=== PATIENT | female | born 1935 | race Caucasian/White ===

== ENCOUNTER 2016-11-02 19:51 | Emergency (ER) | payer OTHER ==
[2016-11-02 19:53] VITALS: BMI 31.7
--- NOTE | 2016-11-02 20:49 | C.PDOC ---
History Of Present Illness 81 y/o female presents to ED with complaint of pain to left buttock and left groin area. Pt with history of herpes, on valtrex 3 days now, no pain medications given. Denies fever, chills, nausea, vomiting, diarrhea, urinary symptoms. Chief Complaint (Nursing): Abnormal Skin Integrity History Per: Patient History/Exam Limitations: no limitations Onset/Duration Of Symptoms: Days Current Symptoms Are (Timing): Still Present Location Of Injury: Left: Abdomen, Leg Quality Of Symptoms: Painful Recent travel outside of the [place]: No Past Medical History Reviewed: Historical Data, Nursing Documentation, Vital Signs Vital Signs: Last Vital Signs Temp 98.5 F 11/02/16 20:14 Pulse 80 11/02/16 20:14 Resp 20 11/02/16 20:14 BP 148/73 11/02/16 20:14 Pulse Ox 94 L 11/02/16 20:50 - Medical History PMH: Diabetes, HTN Family History: States: Unknown Family Hx - Social History Hx Alcohol Use: No Hx Substance Use: No - Immunization History Hx Tetanus Toxoid Vaccination: No Hx Influenza Vaccination: No Hx Pneumococcal Vaccination: No Review Of Systems Constitutional: Negative for: Fever, Chills Gastrointestinal: Negative for: Nausea, Vomiting, Abdominal Pain Genitourinary: Negative for: Dysuria, Frequency Skin: Positive for: Lesions Physical Exam - Physical Exam Appears: Non-toxic, Other (in painful distress) Skin: Warm, Dry, Other (vesicular eruption left thigh, left perineum ) Head: Atraumatic, Normacephalic Oral Mucosa: Moist Chest: Symmetrical Cardiovascular: Rhythm Regular Respiratory: Normal Breath Sounds, No Rales, No Rhonchi, No Wheezing Gastrointestinal/Abdominal: Soft, No Tenderness Back: Normal Inspection Extremity: Normal ROM, Capillary Refill (< 2 sec), Other (see skin exam) Neurological/Psych: Oriented x3, Normal Speech, Normal Cognition ED Course And Treatment O2 Sat by Pulse Oximetry: 94 Pulse Ox Interpretation: Normal Progress Note: Tx Morphine 4mg. On reassessment, patient is resting comfortably , and is in no acute distress. Patient instructed to follow up with clinic/PMD within 1-2 days. Disposition Counseled Patient/Family Regarding: Diagnosis - Disposition Referrals: [facility] [Outside] Disposition: HOME/ ROUTINE Disposition Time: 20:48 Condition: STABLE Prescriptions: oxyCODONE/Acetaminophen [Percocet 5/325 mg Tab] 1 tab PO QID PRN #20 tab PRN Reason: Pain Instructions: Shingles (DC) Forms: Gen Discharge Inst Algerian Print Language: CAY[place] ISLANDER - POA Present On Arrival: None - Clinical Impression Clinical Impression: Herpes zoster - Scribe Statement The provider has reviewed the documentation as recorded by the Morganibmarion Davidson Provider Scribe Attestation: All medical record entries made by the Morganibe were at my direction and personally dictated by me. I have reviewed the chart and agree that the record accurately reflects my personal performance of the history, physical exam, medical decision making, and the department course for this patient. I have also personally directed, reviewed, and agree with the discharge instructions and disposition.
[2016-11-02] MEDS ORDERED: Morphine 4 MG/ML VIAL ONE (20:53)
[2016-11-02 21:10] VITALS: BP 162/79; PULSE 61; RESP 16; TEMP 99; O2SAT 97
== END 2016-11-02 21:05 | disposition home or self-care (01) ==
LOC: C.ER 19:51
DX: B02.9 Zoster without complications (principal)
CPT/HCPCS: 96372; 99284; J2270

== ENCOUNTER 2017-01-01 20:24 | Emergency (ER) | payer OTHER ==
[2017-01-01 20:36] VITALS: TEMP 98.3
[2017-01-01 20:58] LABS: BASO # 0.1 K/uL (0.0-0.2); EOS # 0.5 K/uL (0.0-0.7); EOS % 6.8 % (0.0-4.0); HEMATOCRIT 41.4 % (34.0-47.0); LYMPH # 2.7 K/uL (1.0-4.3); LYMPH % 36.3 % (20.0-40.0); MEAN CELL VOLUME 84.1 fL (81.0-99.0); MEAN CORPUSCULAR HEMOGLOBIN 27.8 pg (27.0-31.0); MEAN CORPUSCULAR HGB CONC 33.1 g/dL (33.0-37.0); MEAN PLATELET VOLUME 9.6 fL (7.2-11.7); MONO # 0.7 K/uL (0.0-0.8); MONO % 9.6 % (0.0-10.0); NRBC % 0.1 % (0.0-2.0); RED CELL DISTRIBUTION WIDTH 13.4 % (11.5-14.5); WHITE BLOOD COUNT 7.4 K/uL (4.8-10.8)
[2017-01-01 21:06] LABS: POTASSIUM 5.3 mmol/L (3.6-5.2)
[2017-01-01 21:08] LABS: RBC URINE 2 /hpf (0-3); TRANSITIONAL EPITHIAL < 1 /hpf (0-3); URINE BACTERIA RARE (<OCC); URINE BILIRUBIN NEGATIVE (NEGATIVE); URINE BLOOD NEGATIVE (NEGATIVE); URINE COLOR Yellow (YELLOW); URINE GLUCOSE (UA) NORMAL (Normal); URINE KETONE NEGATIVE (NEGATIVE); URINE LEUKOCYTE ESTERASE 2+ Leu/uL (Negative); URINE PROTEIN NEGATIVE (NEGATIVE); URINE UROBILINOGEN NORMAL mg/dL (0.2-1.0); WBC URINE 10 /hpf (0-5)
[2017-01-01 21:08] LABS: ALB/GLOB RATIO 1.2 (1.0-2.1); BILIRUBIN,TOTAL 0.4 mg/dL (0.2-1.3); TOTAL PROTEIN 7.3 g/dL (6.3-8.3)
[2017-01-01 21:09] LABS: CALCIUM 9.1 mg/dl (8.6-10.4)
--- NOTE | 2017-01-01 21:38 | C.PDOC ---
History Of Present Illness 81 y/o female presents to ED with daughter who states patient's sugar has been in the 200-300 range for the past several days. Pt recently restarted taking metformin after not taking it for 1 year while [place] Denies chest pain, cough , fever, dysuria or any other complaints. Chief Complaint (Nursing): High Blood Sugar History Per: Patient History/Exam Limitations: no limitations Severity: Mild Recent travel outside of the [place]: No Additional History Per: Family Past Medical History Reviewed: Historical Data, Nursing Documentation, Vital Signs Vital Signs: Last Vital Signs Temp 98.3 F 01/01/17 20:26 Pulse 84 01/01/17 21:40 Resp 16 01/01/17 21:40 BP 133/79 01/01/17 21:40 Pulse Ox 96 01/01/17 21:40 - Medical History PMH: Diabetes, HTN Family History: States: Unknown Family Hx - Social History Hx Alcohol Use: No Hx Substance Use: No - Immunization History Hx Tetanus Toxoid Vaccination: No Hx Influenza Vaccination: No Hx Pneumococcal Vaccination: No Review Of Systems Except As Marked, All Systems Reviewed And Found Negative. Constitutional: Negative for: Fever, Chills Cardiovascular: Negative for: Chest Pain Respiratory: Negative for: Cough Gastrointestinal: Negative for: Vomiting, Abdominal Pain Genitourinary: Negative for: Dysuria Physical Exam - Physical Exam Appears: Non-toxic, No Acute Distress Skin: Warm, Dry, No Rash Head: Atraumatic, Normacephalic Neck: Normal, Normal ROM, Supple Chest: Symmetrical Cardiovascular: Rhythm Regular, No Murmur Respiratory: Normal Breath Sounds, No Rales, No Rhonchi, No Wheezing Gastrointestinal/Abdominal: Normal Exam, Soft, No Tenderness Extremity: No Pedal Edema Extremity: Bilateral: Atraumatic Neurological/Psych: Oriented x3, Normal Speech ED Course And Treatment - Laboratory Results Result Diagrams: 01/01/17 20:54 01/01/17 20:54 O2 Sat by Pulse Oximetry: 95 (room air) Pulse Ox Interpretation: Normal Disposition - Disposition Referrals: [facility] [Outside] [facility] [Outside] Disposition: HOME/ ROUTINE Disposition Time: 21:15 Condition: GOOD Additional Instructions: Thank you for letting us take care of you today. Your provider was Dr. Rich. The emergency medical care you received today was directed at your acute symptoms. If you were prescribed any medication, please fill it and take as directed. It may take several days for your symptoms to resolve. Return to the Emergency Department if your symptoms worsen, do not improve, or if you have any other problems. Please contact your doctor or call one of the physicians/clinics you have been referred to that are listed on the Patient Visit Information form that is included in your discharge packet. Bring any paperwork you were given at discharge with you along with any medications you are taking to your follow up visit. Our treatment cannot replace ongoing medical care by a primary care provider (PCP) outside of the emergency department. Thank you for allowing the [facility] team to be part of your care today. Follow up with the clinic in 2-3 days for re-evaluation. Instructions: How to Check Your Blood Sugar (ED), Diabetes Mellitus Type 2 in Adults (ED) Forms: Gen Discharge Inst Khmer Print Language: CENTRAL AFRICAN - Clinical Impression Clinical Impression: Diabetes mellitus - Scribe Statement The provider has reviewed the documentation as recorded by the Hilda Baires Provider Attestation: All medical record entries made by the Hilda were at my direction and personally dictated by me. I have reviewed the chart and agree that the record accurately reflects my personal performance of the history, physical exam, medical decision making, and the department course for this patient. I have also personally directed, reviewed, and agree with the discharge instructions and disposition.
[2017-01-01 21:41] VITALS: BP 133/79; PULSE 84; RESP 16
[2017-01-01 21:49] VITALS: O2SAT 95
== END 2017-01-01 21:40 | disposition home or self-care (01) ==
LOC: C.ER 20:24
DX: E11.9 Type 2 diabetes mellitus without complications (principal); I10 Essential (primary) hypertension

== ENCOUNTER 2017-01-21 13:09 | Emergency (ER) | payer OTHER ==
[2017-01-21 14:26] VITALS: O2SAT 96
[2017-01-21] MEDS ORDERED: Lactated Ringer's 1,000 ML IVB ONE (14:30)
[2017-01-21 14:53] LABS: BASO # 0.1 K/uL (0.0-0.2); BASO % 0.8 % (0.0-2.0); EOS # 0.1 K/uL (0.0-0.7); EOS % 0.8 % (0.0-4.0); HEMOGLOBIN 13.8 g/dL (11.0-16.0); LYMPH % 14.6 % (20.0-40.0); MEAN CELL VOLUME 84.7 fL (81.0-99.0); MEAN CORPUSCULAR HEMOGLOBIN 27.5 pg (27.0-31.0); MEAN CORPUSCULAR HGB CONC 32.4 g/dL (33.0-37.0); MEAN PLATELET VOLUME 9.2 fL (7.2-11.7); MONO # 0.9 K/uL (0.0-0.8); NEUT # 10.5 K/uL (1.8-7.0); NEUT % 76.8 % (50.0-75.0); RBC 5.02 Mil/uL (3.80-5.20); WHITE BLOOD COUNT 13.6 K/uL (4.8-10.8)
[2017-01-21 15:02] LABS: ALBUMIN 3.5 g/dL (3.5-5.0)
[2017-01-21 15:05] LABS: ALB/GLOB RATIO 1.3 (1.0-2.1); AST/SGOT 22 U/L (14-36); GFR AFRICAN-AMERICAN > 60; GFR NON-AFRICAN AMERICAN > 60
[2017-01-21 15:06] LABS: ALT/SGPT 26 U/L (9-52); BLOOD UREA NITROGEN 32 mg/dL (7-17); CALCIUM 8.8 mg/dl (8.6-10.4); MAGNESIUM 1.7 mg/dL (1.6-2.3)
[2017-01-21 15:46] LABS: SQUAMOUS EPITHIAL 1 /hpf (0-5); URINE BACTERIA RARE (<OCC); URINE BILIRUBIN NEGATIVE (NEGATIVE); URINE BLOOD 3+ (NEGATIVE); URINE CLARITY Clear (Clear); URINE COLOR Yellow (YELLOW); URINE GLUCOSE (UA) 3+ mg/dL (Normal); URINE LEUKOCYTE ESTERASE 1+ Leu/uL (Negative); URINE NITRATE NEGATIVE (NEGATIVE); URINE PROTEIN NEGATIVE (NEGATIVE); URINE UROBILINOGEN NORMAL mg/dL (0.2-1.0)
[2017-01-21] MEDS ORDERED: Sodium Chloride 0.9% 1,000 ML IV ONE (15:53)
[2017-01-21] MEDS ORDERED: Sodium Chloride 0.9% 1,000 ML ONE (16:24)
--- NOTE | 2017-01-21 18:05 | C.PDOC ---
Time Seen by Provider: 01/21/17 14:16 Chief Complaint (Nursing): Abnormal Skin Integrity History Per: Patient, Family Onset/Duration Of Symptoms: Days (few) Current Symptoms Are (Timing): Still Present Location Of Injury: Posterior: Perineum (Teresa-anal) Quality Of Symptoms: Itching Severity: Moderate Additional History Per: Prior Records Past Medical History Reviewed: Historical Data, Nursing Documentation, Vital Signs Vital Signs: Last Vital Signs Temp 97.7 F 01/21/17 13:32 Pulse 84 01/21/17 13:32 Resp 20 01/21/17 13:32 BP 107/65 01/21/17 13:32 Pulse Ox 96 01/21/17 13:32 - Medical History PMH: Diabetes, HTN, Hypercholesterolemia Family History: States: Unknown Family Hx - Social History Hx Alcohol Use: No Hx Substance Use: No - Immunization History Hx Tetanus Toxoid Vaccination: No Hx Influenza Vaccination: No Hx Pneumococcal Vaccination: No Review Of Systems Except As Marked, All Systems Reviewed And Found Negative. Constitutional: Positive for: Malaise. Negative for: Fever Cardiovascular: Negative for: Chest Pain Respiratory: Negative for: Shortness of Breath Gastrointestinal: Positive for: Diarrhea (for 5 days, but stopped 2 days ago). Negative for: Vomiting, Abdominal Pain Genitourinary: Negative for: Dysuria, Hematuria Musculoskeletal: Negative for: Neck Pain Skin: Positive for: Rash (Pt is recovering from Shingles) Neurological: Negative for: Weakness, Numbness, Seizures, Altered Mental Status Physical Exam - Physical Exam Appears: Non-toxic, No Acute Distress Skin: Warm, Dry Head: Atraumatic, Normacephalic Eye(s): bilateral: Normal Inspection, PERRL, EOMI Neck: Normal ROM, Supple Cardiovascular: Rhythm Regular Respiratory: Normal Breath Sounds, No Accessory Muscle Use Gastrointestinal/Abdominal: Soft, No Tenderness Rectal: Other (Teresa-anal rash looks like roxanne) Back: No CVA Tenderness Extremity: Normal ROM Neurological/Psych: Oriented x3, Normal Motor, Normal Sensation ED Course And Treatment - Laboratory Results Result Diagrams: 01/21/17 14:47 01/21/17 14:47 Lab Interpretation: Abnormal Interpretation Of Abnormal: Elevated BUN O2 Sat by Pulse Oximetry: 96 Pulse Ox Interpretation: Normal Progress Note: Pt feels much better after IV fluid hydration and wants to go home. Reassessment Condition: Improved Progress - Interventions Interventions:: Observation, Intravenous fluid - Data Reviewed Data Reviewed: Lab, Old records - Patient Status Patient status: Mostly improved - Continuity of Care Discussed patient case with:: Patient, Family-HIPPA compliant, ED Nurse - Patient Plan Patient Plan: Discharge, F/U with PCP, Continue present meds Disposition Counseled Patient/Family Regarding: Studies Performed, Diagnosis, Need For Followup, Rx Given - Disposition Referrals: Nehal Cuevas MD [Staff Provider] - Disposition: HOME/ ROUTINE Disposition Time: 18:06 Condition: IMPROVED Additional Instructions: Follow up with your doctor within 1-2 weeks for further evaluation and treatment. Return to the ER if she develops fever, vomiting, abdominal pain, lethargy, worsening of symptoms or if you have any other concerns. Prescriptions: Nystatin [Mycostatin Cream] 1 applic TOP TID #1 tube Instructions: Skin Yeast Infection (ED), Dehydration (ED) Print Language: GREEK - Clinical Impression Clinical Impression: Perianal candidiasis, Dehydration
[2017-01-21 18:35] VITALS: RESP 18
[2017-01-21 18:40] VITALS: BP 158/80; PULSE 68; TEMP 98.2
== END 2017-01-21 18:35 | disposition home or self-care (01) ==
LOC: C.ER 13:09
DX: B37.89 Other sites of candidiasis (principal); E86.0 Dehydration
CPT/HCPCS: 80053; 81001; 83735; 85025; 96360; 99285; J7040

== ENCOUNTER 2017-09-03 09:48 | Day surgery (SDC) | payer OTHER ==
[2017-09-03 10:09] VITALS: BMI 25.4
[2017-09-03] MEDS ORDERED: Propofol 10 mg/ml Inj (20 ML) ONE ×3 (11:20→11:50)
[2017-09-03 12:20] VITALS: TEMP 97.3
[2017-09-03 12:45] VITALS: PULSE 65
[2017-09-03 14:43] VITALS: BP 163/71; RESP 18; O2SAT 99
== END 2017-09-03 13:20 | disposition home or self-care (01) ==
LOC: C.ENDO 09:48
PROVIDERS: ATTEND Internal Medicine
DX: K29.70 Gastritis, unspecified, without bleeding (principal); K85.90 Acute pancreatitis without necrosis or infection, unspecified; Z88.1 Allergy status to other antibiotic agents; E11.9 Type 2 diabetes mellitus without complications; E78.5 Hyperlipidemia, unspecified; I10 Essential (primary) hypertension; H91.3 Deaf nonspeaking, not elsewhere classified; Z83.3 Family history of diabetes mellitus; Z79.84 Long term (current) use of oral hypoglycemic drugs; Z79.899 Other long term (current) drug therapy; E66.9 Obesity, unspecified; Z68.28 Body mass index [BMI] 28.0-28.9, adult; K44.9 Diaphragmatic hernia without obstruction or gangrene; K57.10 Diverticulosis of small intestine without perforation or abscess without bleeding; B96.81 Helicobacter pylori [H. pylori] as the cause of diseases classified elsewhere
CPT/HCPCS: 43238; 43239; 82948; 88305; 88342; J2704

== ENCOUNTER 2017-09-16 09:52 | Emergency (ER) | payer OTHER ==
[2017-09-16 09:53] VITALS: BMI 25.4
[2017-09-16 10:06] VITALS: TEMP 100.5
--- NOTE | 2017-09-16 10:24 | C.PDOC ---
History Of Present Illness 82 year old female with PMHx of non insulin dependent DM, gallstones and HLD presents to the ED c/o pain mainly to her right knee radiating down to the dorsum of her right foot. Patient is normally ambulatory without assistance but now is limited due to the pain. Patient denies recent trauma, lower back pain, hx of neuropathy, arthritis, fever. History was mainly obtained from patient's daughter who speaks fluent Armenian. Chief Complaint (Nursing): Lower Extremity Problem/Injury History Per: Patient History/Exam Limitations: no limitations Onset/Duration Of Symptoms: Days Current Symptoms Are (Timing): Still Present Recent travel outside of the [place]: No Additional History Per: Patient - Knee Description Of Injury: Other Currently Unable To: Bend Or Move - Ankle/Foot Description Of Injury: Other Currently Unable To: Bend Or Move Past Medical History Reviewed: Historical Data, Nursing Documentation, Vital Signs Vital Signs: Last Vital Signs Temp 100.5 F H 09/16/17 10:05 Pulse 79 09/16/17 12:17 Resp 18 09/16/17 12:17 BP 130/76 09/16/17 12:17 Pulse Ox 96 09/16/17 12:35 - Medical History PMH: Arthritis, Diabetes, Gastritis, HTN, Hypercholesterolemia Denies: Chronic Kidney Disease Surgical History: Endoscopy Family History: States: Unknown Family Hx - Social History Hx Alcohol Use: No Hx Substance Use: No - Immunization History Hx Tetanus Toxoid Vaccination: No Hx Influenza Vaccination: No Hx Pneumococcal Vaccination: No Review Of Systems Constitutional: Negative for: Fever, Chills Respiratory: Negative for: Cough, Shortness of Breath Gastrointestinal: Negative for: Nausea, Vomiting, Abdominal Pain Musculoskeletal: Positive for: Leg Pain, Foot Pain Skin: Negative for: Rash Neurological: Negative for: Weakness, Numbness Physical Exam - Physical Exam Appears: Non-toxic, No Acute Distress Skin: Normal Color, Warm, Dry Head: Atraumatic, Normacephalic Eye(s): bilateral: Normal Inspection Nose: No Discharge Oral Mucosa: Moist Neck: Normal ROM, Supple Chest: Symmetrical Cardiovascular: Rhythm Regular, No Murmur Respiratory: Normal Breath Sounds, No Rales, No Rhonchi, No Wheezing Gastrointestinal/Abdominal: Soft, No Tenderness, No Guarding, No Rebound Extremity: Normal ROM, Tenderness (right knee), Capillary Refill (< 2 seconds), No Swelling, Other (No effusion pain on flexion of the right knee, foot warm to touch) Pulses: Left Dorsalis Pedis: Normal, Right Dorsalis Pedis: Normal Neurological/Psych: Oriented x3 ED Course And Treatment - Laboratory Results Result Diagrams: 09/16/17 10:47 09/16/17 10:47 ECG: Interpreted By Me ECG Rhythm: Sinus Rhythm ECG Interpretation: Normal Interpretation Of ECG: NSR,no acute ischemic changes O2 Sat by Pulse Oximetry: 96 (On RA) Pulse Ox Interpretation: Normal Medical Decision Making Medical Decision Making: Impression: arthritis, questionable neuropathy, DVT unlikely Plan: * Labs * Right knee X-Ray * venous duplex * Percocet 1 tab Disposition - Disposition Disposition: HOME/ ROUTINE Disposition Time: 12:29 Condition: FAIR Prescriptions: Gabapentin [Neurontin] 300 mg PO TID #21 cap Instructions: Peripheral Neuropathy, Osteoarthritis (DC) Forms: [employer] (Armenian) - Clinical Impression Clinical Impression: Neuropathy, Arthritis, Arthritis, Diabetes mellitus - Scribe Statement The provider has reviewed the documentation as recorded by the Scribe Rock Jiménez All medical record entries made by the Scribe were at my direction and personally dictated by me. I have reviewed the chart and agree that the record accurately reflects my personal performance of the history, physical exam, medical decision making, and the department course for this patient. I have also personally directed, reviewed, and agree with the discharge instructions and disposition.
[2017-09-16] MEDS ORDERED: Oxycodone/Acetaminophen 5/325 mg Tab PO STA (10:49)
[2017-09-16 10:52] LABS: BASO # 0.1 K/uL (0.0-0.2); EOS # 0.2 K/uL (0.0-0.7); EOS % 2.9 % (0.0-4.0); HEMOGLOBIN 13.5 g/dL (11.0-16.0); LYMPH # 1.3 K/uL (1.0-4.3); LYMPH % 23.6 % (20.0-40.0); MEAN CELL VOLUME 83.8 fL (81.0-99.0); MEAN CORPUSCULAR HEMOGLOBIN 28.3 pg (27.0-31.0); MEAN CORPUSCULAR HGB CONC 33.8 g/dL (33.0-37.0); MEAN PLATELET VOLUME 8.3 fL (7.2-11.7); MONO # 0.8 K/uL (0.0-0.8); NEUT # 3.1 K/uL (1.8-7.0); NEUT % 57.5 % (50.0-75.0); NRBC % 0.1 % (0.0-2.0); RBC 4.76 Mil/uL (3.80-5.20); RED CELL DISTRIBUTION WIDTH 13.6 % (11.5-14.5); WHITE BLOOD COUNT 5.3 K/uL (4.8-10.8)
[2017-09-16] MEDS ORDERED: Oxycodone/Acetaminophen 5/325 mg Tab ONE (10:53)
[2017-09-16 11:04] LABS: ALB/GLOB RATIO 1.3 (1.0-2.1); ALBUMIN 4.1 g/dL (3.5-5.0); ALT/SGPT 20 U/L (9-52); AST/SGOT 31 U/L (14-36); BLOOD UREA NITROGEN 11 mg/dL (7-17); CALCIUM 9.1 mg/dl (8.6-10.4); GFR AFRICAN-AMERICAN > 60; GFR NON-AFRICAN AMERICAN > 60
[2017-09-16 12:17] VITALS: BP 130/76; PULSE 79; RESP 18
[2017-09-16 12:31] VITALS: O2SAT 96
--- NOTE | 2017-09-16 14:02 | RAD ---
PROCEDURE: Right Knee Radiographs. HISTORY: pain COMPARISON: None. FINDINGS: BONES: Medial knee joint line spurring present. No fracture. JOINTS: Left medial femoral osteoarthrosis and joint space narrowing. Oblique cross-table lateral view. JOINT EFFUSION: None. OTHER FINDINGS: Quadriceps insertional enthesophyte IMPRESSION: Osteoarthrosis. No fracture or lytic lesion Quadriceps insertional enthesophyte
--- NOTE | 2017-09-17 10:18 | VASCLAB ---
PROCEDURE: Lower Extremity Venous Duplex Exam. HISTORY: leg pain PRIORS: None. TECHNIQUE: Bilateral common femoral, femoral, popliteal and posterior tibial, peroneal and great saphenous veins were evaluated. Flow was assessed with color Doppler, compressibility, assessment of phasic flow and augmentation response. Report prepared by CHANTEL Nunez, RVT FINDINGS: RIGHT: 1. Common Femoral Vein: 1.1. Compressibility - Fully compressible: Thrombus - None : Flow - Phasic: Augmentation -Normal: Reflux - None. 2. Femoral Vein: 2.1. Compressibility - Fully compressible: Thrombus - None : Flow - Phasic: Augmentation -Normal: Reflux - None. 3. Popliteal Vein: 3.1. Compressibility - Fully compressible: Thrombus - None : Flow - Phasic: Augmentation -Normal: Reflux - None. 4. Posterior Tibial Vein: 4.1. Compressibility - Fully compressible: Thrombus - None: Flow - Phasic: Augmentation -Normal: Reflux - None. 5. Peroneal Vein: 5.1. Compressibility - Fully compressible: Thrombus - None: Flow - Phasic: Augmentation -Normal: Reflux - None. 6. Great Saphenous Vein: 6.1. Compressibility - Fully compressible: Thrombus - None: Flow - Phasic: Augmentation - Normal: Reflux - None. LEFT: 1. Common Femoral Vein: 1.1. Compressibility - Fully compressible: Thrombus - None: Flow - Phasic: Augmentation -Normal: Reflux - None. 2. Femoral Vein: 2.1. Compressibility - Fully compressible: Thrombus - None: Flow - Phasic: Augmentation -Normal: Reflux - None. 3. Popliteal Vein: 3.1. Compressibility - Fully compressible: Thrombus - None : Flow - Phasic: Augmentation -Normal: Reflux - None. 4. Posterior Tibial Vein: 4.1. Compressibility - Fully compressible: Thrombus - None: Flow - Phasic: Augmentation -Normal: Reflux - None. 5. Peroneal Vein: 5.1. Compressibility - Fully compressible: Thrombus - None: Flow - Phasic: Augmentation -Normal: Reflux - None. 6. Great Saphenous Vein: 6.1. Compressibility - Fully compressible: Thrombus - None: Flow - Phasic: Augmentation - Normal: Reflux - None. OTHER FINDINGS: Right: None significant. Left: None significant. IMPRESSION: Right: No evidence of deep or superficial vein thrombosis of the right lower extremity. Normal valve function noted of the right side. Left: No evidence of deep or superficial vein thrombosis of the left lower extremity. Normal valve function noted of the left side.
== END 2017-09-16 12:41 | disposition home or self-care (01) ==
LOC: C.ER 09:52
DX: M13.861 Other specified arthritis, right knee (principal); E11.40 Type 2 diabetes mellitus with diabetic neuropathy, unspecified

== ENCOUNTER 2018-03-27 12:09 | Inpatient (IN) | payer OTHER ==
[2018-03-27 12:10] VITALS: BMI 28.2
[2018-03-27] MEDS ORDERED: Sodium Chloride 0.9% 1,000 ML IV ONE (12:35)
[2018-03-27] MEDS ORDERED: Morphine 4 MG/ML VIAL IV STA (12:36)
--- NOTE | 2018-03-27 12:38 | C.PDOC ---
History Of Present Illness 82 y/o female, with PMHx of HTN, and diabetes, presents to ED accompanied by caregiver for evaluation of upper abdominal pain associated with nausea and vomiting. Denies trying any OTC medications. Pt was admitted here last year for pancreatitis. Otherwise, denies diarrhea, fever, chills, back pain, urinary symptoms, chest pain, shortness of breath, or any other associated symptoms at this time. Pt is non-verbal, history obtained from caregiver. Time Seen by Provider: 03/27/18 12:22 Chief Complaint (Nursing): Abdominal Pain History Per: Other (caregiver) History/Exam Limitations: no limitations Onset/Duration Of Symptoms: Days Current Symptoms Are (Timing): Still Present Location Of Pain/Discomfort: RUQ, LUQ Radiation Of Pain To:: None Quality Of Discomfort: "Pain" Associated Symptoms: Nausea, Vomiting. denies: Diarrhea, Loss Of Appetite, Back Pain, Chest Pain, Constipation, Urinary Symptoms Exacerbating Factors: None Alleviating Factors: None Additional History Per: Prior Records Abnormal Vaginal Bleeding: No Past Medical History Reviewed: Historical Data, Nursing Documentation, Vital Signs Vital Signs: Last Vital Signs Temp 98.1 F 03/27/18 12:15 Pulse 81 03/27/18 14:09 Resp 12 03/27/18 14:09 BP 140/85 03/27/18 14:09 Pulse Ox 96 03/27/18 15:04 - Medical History PMH: Arthritis, Diabetes, Gastritis, HTN, Hypercholesterolemia Denies: Chronic Kidney Disease Surgical History: Endoscopy Family History: States: Unknown Family Hx - Social History Hx Alcohol Use: No Hx Substance Use: No - Immunization History Hx Tetanus Toxoid Vaccination: No Hx Influenza Vaccination: No Hx Pneumococcal Vaccination: No Review Of Systems Except As Marked, All Systems Reviewed And Found Negative. Constitutional: Negative for: Fever, Chills Cardiovascular: Negative for: Chest Pain Respiratory: Negative for: Shortness of Breath Gastrointestinal: Positive for: Nausea, Vomiting, Abdominal Pain. Negative for : Diarrhea, Constipation, Melena, Hematochezia, Hematemesis Genitourinary: Negative for: Dysuria, Frequency, Hematuria, Vaginal Discharge Musculoskeletal: Negative for: Back Pain Neurological: Negative for: Headache, Dizziness Physical Exam - Physical Exam Appears: Non-toxic, No Acute Distress Skin: Normal Color, Warm, Dry Head: Atraumatic, Normacephalic Eye(s): bilateral: Normal Inspection Oral Mucosa: Moist Neck: Normal ROM, Supple Cardiovascular: Rhythm Regular, No Murmur Respiratory: Normal Breath Sounds, No Rales, No Rhonchi, No Wheezing Gastrointestinal/Abdominal: Bowel Sounds, Soft, Tenderness (LUQ > RUQ), No Guarding, No Rebound Back: No CVA Tenderness Extremity: Normal ROM, No Pedal Edema Neurological/Psych: Oriented x3 ED Course And Treatment - Laboratory Results Result Diagrams: 03/27/18 12:46 03/27/18 12:46 ECG: Interpreted By Me, Viewed By Me ECG Rhythm: Sinus Rhythm, L BBB, PVC Interpretation Of ECG: Left axis deviation. No ST/T wave changes. Rate From EC (bpm) O2 Sat by Pulse Oximetry: 96 (RA) Pulse Ox Interpretation: Normal - CT Scan/US Abd & Pelvis CT Other Rad Studies (CT/US): Read By Radiologist, Radiology Report Reviewed CT/US Interpretation: FINDINGS: LOWER THORAX: The lung bases are clear. LIVER : Fatty liver. Mild prominence of central biliary radicles.. GALLBLADDER AND BILE DUCTS: No calcified gallstones. Moderate dilatation of the common bile duct which measures 1.2 cm. PANCREAS: Mild fatty atrophy of the pancreas. No gross lesion or ductal dilatation. SPLEEN: Normal in size and appearance. ADRENALS: No discrete nodule. KIDNEYS AND URETERS: Normal in size with homogeneous enhancement. No hydronephrosis. No solid mass. VASCULATURE: No aortic aneurysm. BOWEL: The stomach is decompressed. 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 The small bowel loops are normal in caliber. There is fecalization of small bowel contents. There is large amount of stool in the colon. No bowel dilatation or obstruction. APPENDIX: Normal appendix. PERITONEUM: No free fluid. No free air. LYMPH NODES: No enlarged lymph nodes. BLADDER: Partially decompressed. REPRODUCTIVE: The uterus is normal in size and deviated to the left. BONES: No acute fracture. There is diffuse bone demineralization and multilevel degenerative changes in the spine. OTHER FINDINGS: There is a small sliding hiatal hernia. IMPRESSION: 1. 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 2. Constipation. No evidence of bowel obstruction. 3. Fatty liver. Medical Decision Making Medical Decision Making: Plan: Blood work Urinalysis CXR EKG Morphine Zofran Protonix IV fluids Impression: Abdominal pain Case discussed with Dr. Lara who agrees upon med-surge admission for pancreatitis. Disposition Discussed With .: Carmen Lara Doctor Will See Patient In The: Hospital Counseled Patient/Family Regarding: Studies Performed, Diagnosis - Disposition Disposition: HOSPITALIZED Disposition Time: 15:04 Condition: FAIR Forms: [employer] Connect (Jamaican) - Clinical Impression Clinical Impression: Pancreatitis - Scribe Statement The provider has reviewed the documentation as recorded by the Scribe KP All medical record entries made by the Scribe were at my direction and personally dictated by me. I have reviewed the chart and agree that the record accurately reflects my personal performance of the history, physical exam, medical decision making, and the department course for this patient. I have also personally directed, reviewed, and agree with the discharge instructions and disposition.
[2018-03-27] MEDS ORDERED: Sodium Chloride 0.9% 1,000 ML ONE (12:46)
[2018-03-27 12:57] LABS: BASO # 0.1 K/uL (0.0-0.2); BASO % 0.9 % (0.0-2.0); EOS # 0.3 K/uL (0.0-0.7); EOS % 2.7 % (0.0-4.0); HEMOGLOBIN 14.8 g/dL (11.0-16.0); LYMPH % 40.8 % (20.0-40.0); MEAN CORPUSCULAR HEMOGLOBIN 28.2 pg (27.0-31.0); MEAN CORPUSCULAR HGB CONC 34.5 g/dL (33.0-37.0); MONO # 0.7 K/uL (0.0-0.8); MONO % 6.6 % (0.0-10.0); NEUT # 4.8 K/uL (1.8-7.0); NRBC % 0.1 % (0.0-2.0); RBC 5.24 Mil/uL (3.80-5.20); RED CELL DISTRIBUTION WIDTH 14.1 % (11.5-14.5)
[2018-03-27 12:59] LABS: MEAN CELL VOLUME 81.8 fL (81.0-99.0); WHITE BLOOD COUNT 9.9 K/uL (4.8-10.8)
[2018-03-27 13:08] LABS: SQUAMOUS EPITHIAL 6 /hpf (0-5); URINE BACTERIA RARE (<OCC); URINE BILIRUBIN NEGATIVE (NEGATIVE); URINE BLOOD NEGATIVE (NEGATIVE); URINE COLOR Yellow (YELLOW); URINE GLUCOSE (UA) NORMAL (Normal); URINE LEUKOCYTE ESTERASE 3+ Leu/uL (Negative); URINE PROTEIN NEGATIVE (NEGATIVE)
[2018-03-27 13:09] LABS: URINE CLARITY SLHAZY (Clear)
[2018-03-27 13:12] LABS: BLOOD UREA NITROGEN 19 mg/dL (7-17); CALCIUM 10.2 mg/dl (8.6-10.4); GFR NON-AFRICAN AMERICAN > 60
[2018-03-27 13:13] LABS: ALB/GLOB RATIO 1.4 (1.0-2.1); ALBUMIN 4.6 g/dL (3.5-5.0); ALT/SGPT 32 U/L (9-52); AST/SGOT 78 U/L (14-36)
[2018-03-27 13:22] LABS: B-TYPE NATRIURETIC PEPTIDE 96.8 pg/mL (0-900)
[2018-03-27 13:26] LABS: LIPASE 8941 U/L (23-300)
[2018-03-27] MEDS ORDERED: Iodixanol 320 MG/ML 100 ML BOTTLE IV ONE (13:32)
--- NOTE | 2018-03-27 13:37 | RAD ---
Date of service: 03/27/2018 PROCEDURE: CHEST RADIOGRAPH, 1 VIEW HISTORY: SOB COMPARISON: 05/07/2017. FINDINGS: LUNGS: The lungs are well inflated and clear. PLEURA: No pneumothorax or pleural fluid seen. CARDIOVASCULAR: Normal. OSSEOUS STRUCTURES: No significant abnormalities. VISUALIZED UPPER ABDOMEN: Normal. OTHER FINDINGS: None. IMPRESSION: No active pulmonary disease.
--- NOTE | 2018-03-27 14:33 | CT ---
Date of service: 03/27/2018 PROCEDURE: CT Abdomen and Pelvis with contrast HISTORY: Upper abdominal pain. COMPARISON: 05/07/2017 and 09/06/2017. TECHNIQUE: CT scan of the abdomen and pelvis was performed after administration of intravenous contrast. Oral contrast was not administered. Coronal and sagittal reformatted images were obtained. Contrast dose: 100 mL Visipaque 320 Radiation dose: Total exam DLP = 349.65 mGy-cm. This CT exam was performed using one or more of the following dose reduction techniques: Automated exposure control, adjustment of the mA and/or kV according to patient size, and/or use of iterative reconstruction technique. FINDINGS: LOWER THORAX: The lung bases are clear. LIVER: Fatty liver. Mild prominence of central biliary radicles.. GALLBLADDER AND BILE DUCTS: No calcified gallstones. Moderate dilatation of the common bile duct which measures 1.2 cm. PANCREAS: Mild fatty atrophy of the pancreas. No gross lesion or ductal dilatation. SPLEEN: Normal in size and appearance. ADRENALS: No discrete nodule. KIDNEYS AND URETERS: Normal in size with homogeneous enhancement. No hydronephrosis. No solid mass. VASCULATURE: No aortic aneurysm. BOWEL: The stomach is decompressed. 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 The small bowel loops are normal in caliber. There is fecalization of small bowel contents. There is large amount of stool in the colon. No bowel dilatation or obstruction. APPENDIX: Normal appendix. PERITONEUM: No free fluid. No free air. LYMPH NODES: No enlarged lymph nodes. BLADDER: Partially decompressed. REPRODUCTIVE: The uterus is normal in size and deviated to the left. BONES: No acute fracture. There is diffuse bone demineralization and multilevel degenerative changes in the spine. OTHER FINDINGS: There is a small sliding hiatal hernia. IMPRESSION: 1. 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 2. Constipation. No evidence of bowel obstruction. 3. Fatty liver.
--- NOTE | 2018-03-27 15:11 | CP.PCM.HP ---
<Leny Almonte - Last Filed: 03/27/18 17:09> History of Present Illness - History of Present Illness History of Present Illness: Medicine Progress Note for Hospitalist Service CC: abdominal pain HPI: This is a 82 year old female with PMHx Deaf (bilaterally) Hypertension, HLD , T2DM, Recurrent Pancreatitis, H. Pylori, Constipation, Gastritis who presents with abdominal pain. History retrieved from daughter, Bisi as patient is deaf. She has had this intermittent abdominal gnawing, burning pain for the past 6 months. The pain persisted while she was in [place] but it was intermittent and not as strong as this episode. Patient was seen in May 2017 for pancreatitis, she underwent extensive work up since then including Pancreas CT protocol and Upper EUS which was unremarkable, except positive for H. Pylori (09/2017). Patient never followed up with GI for the results as she traveled to [place] and just returned 2 weeks ago. As per daughter, patient reported nausea, some vomiting, sometimes associated with food (unclear what types provoke it more or less). Patient is constipated at baseline but reported being able to pass flatus and small bowel movement today. As per daughter, no fever, chills, chest pain, SOB, abdominal pain currently, n/v/, or urinary symptoms. PMHx: Deaf (bilaterally) Hypertension, HLD, T2DM, Recurrent Pancreatitis, H. Pylori, Constipation, Gastritis PSHx: Denied Meds: As per MAR, reviewed and confirmed All: NKDA SHx: Lives with daughter, denies alcohol, denies smoking, denies illicit drug use FHx: PMD: [place] Present on Admission - Present on Admission Any Indicators Present on Admission: No Past Patient History - Infectious Disease Hx of Infectious Diseases: None - Past Medical History & Family History Past Medical History?: Yes - Past Social History Smoking Status: Never Smoked - CARDIAC Hx Hypercholesterolemia: Yes Hx Hypertension: Yes - PULMONARY Hx Respiratory Disorders: No - NEUROLOGICAL Hx Neurological Disorder: No Hx Dizziness: Yes - HEENT Hx HEENT Problems: Yes - RENAL Hx Chronic Kidney Disease: No - ENDOCRINE/METABOLIC Hx Endocrine Disorders: Yes Hx Diabetes Mellitus Type 2: Yes - HEMATOLOGICAL/ONCOLOGICAL Hx Blood Disorders: Yes Hx Shingles: Yes - INTEGUMENTARY Hx Dermatological Problems: No - MUSCULOSKELETAL/RHEUMATOLOGICAL Hx Arthritis: Yes - GASTROINTESTINAL Hx Gastritis: Yes - GENITOURINARY/GYNECOLOGICAL Hx Genitourinary Disorders: No - PSYCHIATRIC Hx Substance Use: No - SURGICAL HISTORY Hx Surgeries: Yes - ANESTHESIA Hx Anesthesia: No Hx Anesthesia Reactions: No Meds Allergies/Adverse Reactions: Allergies Allergy/AdvReac Type Severity Reaction Status Date / Time No Known Allergies Allergy Verified 03/27/18 12:23 Physical Exam - Constitutional Appears: No Acute Distress - Head Exam Head Exam: NORMAL INSPECTION, NORMOCEPHALIC - Eye Exam Eye Exam: EOMI, Normal appearance, PERRL. absent: Nystagmus, Scleral icterus Pupil Exam: NORMAL ACCOMODATION - ENT Exam ENT Exam: Mucous Membranes Moist Additional comments: poor dentition - Neck Exam Neck exam: Positive for: Normal Inspection. Negative for: Lymphadenopathy, Meningismus, Thyromegaly - Respiratory Exam Respiratory Exam: Clear to Auscultation Bilateral, NORMAL BREATHING PATTERN. absent: Decreased Breath Sounds, Wheezes - Cardiovascular Exam Cardiovascular Exam: REGULAR RHYTHM, RRR, +S1, +S2 - GI/Abdominal Exam GI & Abdominal Exam: Normal Bowel Sounds, Soft, Tenderness (TTP RUQ / EPIGASTRIC REGION ). absent: Diminished Bowel Sounds, Firm, Mass, Organomegaly , Rebound - Rectal Exam Rectal Exam: Deferred - Extremities Exam Extremities exam: Positive for: normal inspection, pedal pulses present. Negative for: pedal edema, tenderness - Back Exam Back exam: NORMAL INSPECTION. absent: CVA tenderness (L), CVA tenderness (R) - Neurological Exam Neurological exam: Alert, CN II-XII Intact, Oriented x3 - Psychiatric Exam Psychiatric exam: Normal Affect, Normal Mood - Skin Skin Exam: Dry, Intact, Normal Color, Warm Results - Vital Signs Recent Vital Signs: Last Vital Signs Temp 98.1 F 03/27/18 12:15 Pulse 81 03/27/18 14:09 Resp 12 03/27/18 14:09 BP 140/85 03/27/18 14:09 Pulse Ox 96 03/27/18 15:06 - Labs Result Diagrams: 03/27/18 12:46 03/27/18 12:46 Labs: Laboratory Results - last 24 hr 03/27/18 03/27/18 03/27/18 12:46 12:46 12:54 WBC 9.9 D RBC 5.24 H Hgb 14.8 Hct 42.9 MCV 81.8 D MCH 28.2 MCHC 34.5 RDW 14.1 Plt Count 246 MPV 9.0 Neut % (Auto) 49.0 L Lymph % (Auto) 40.8 H [place] % (Auto) 6.6 Eos % (Auto) 2.7 Baso % (Auto) 0.9 Neut # (Auto) 4.8 Lymph # (Auto) 4.0 [place] # (Auto) 0.7 Eos # (Auto) 0.3 Baso # (Auto) 0.1 Sodium 142 Potassium 4.2 Chloride 101 Carbon Dioxide 25 Anion Gap 21 H BUN 19 H Creatinine 0.7 Est GFR ( Amer) > 60 Est GFR (Non-Af Amer) > 60 Random Glucose 146 H Calcium 10.2 Magnesium 1.8 Total Bilirubin 0.9 AST 78 H D ALT 32 Alkaline Phosphatase 90 Troponin I < 0.0120 NT-Pro-B Natriuret Pep 96.8 Total Protein 8.0 Albumin 4.6 Globulin 3.4 Albumin/Globulin Ratio 1.4 Lipase 8941 H Urine Color Yellow Urine Clarity [place] Urine pH 6.0 Ur Specific [place] 1.014 Urine Protein Negative Urine Glucose (UA) Normal Urine Ketones Negative Urine Blood Negative Urine Nitrate Negative Urine Bilirubin Negative Urine Urobilinogen 2.0 H Ur Leukocyte Esterase 3+ H Urine WBC (Auto) 15 H Urine RBC (Auto) 2 Ur Squamous Epith Cells 6 H Urine Bacteria Rare Assessment & Plan - Assessment and Plan (Free Text) Plan: Acute Pancreatitis --- GI consulted, Dr. Matias - Lipase: 8941 Imaging: - CT abdomen and pelvis: 1. 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 2. Constipation. No evidence of bowel obstruction. Previous Workup: - Upper EUS 09/03/17: Unremarkable. - Biopsy from EUS showed + H. pylori - Pancreatic CT Protocol 09/2017: No peripancreatic inflammatory changes or fluid collections evident. Pancreatic atrophy. Recommend correlation with amylase and lipase. Management: - NPO, IVF, Zofran and Morphine PRN RUQ Pain - Abdominal US ordered H. Pylori --- GI consulted, Dr. Matias - + noted on EUS biopsy 09/03/17 - F/U H. pylori studies, will initiate treatment pending GI reccs Urinary Tract Infection - UA - + LE, f/u urine culture - Rocephin 1 gram daily started 03/27/18 Constipation - Dulcolax CO x1 - Miralax daily, Colace BID (held due to STRICT NPO status) Hypertension - HELD home medications due to strict NPO status: Norvasc 5mg daily, Lisinopril 10mg daily, HCTZ 12.5mg daily - Patient is admitted on med/surg - will continue to monitor BP Type 2 DM - Accuchecks Q6H due to NPO status - ISS low, hypoglycemic protocol ordered - f/u hemoglobin A1C Hypercholesterolemia, Hyperlipidemia - Restarted home meds Lipitor -- (NF), Crestor (will hold since strict NPO) - T choles: 252 LDL: HDL: 40 Hx Gastritis - hold off on ASA Prophylactic Measures - GI PPX: Protonix IV - DVT PPX: SCDs, Lovenox - STRICT NPO DW Dr. Lara, Leny Almonte DO, PGY2 <Carmen Lara V - Last Filed: 03/27/18 20:08> Results - Vital Signs Recent Vital Signs: Last Vital Signs Temp 99.4 F 03/27/18 17:50 Pulse 84 03/27/18 17:50 Resp 20 03/27/18 17:50 BP 164/81 H 03/27/18 17:50 Pulse Ox 99 03/27/18 16:24 - Labs Result Diagrams: 03/27/18 12:46 03/27/18 12:46 Labs: Laboratory Results - last 24 hr 03/27/18 03/27/18 03/27/18 12:46 12:46 12:54 WBC 9.9 D RBC 5.24 H Hgb 14.8 Hct 42.9 MCV 81.8 D MCH 28.2 MCHC 34.5 RDW 14.1 Plt Count 246 MPV 9.0 Neut % (Auto) 49.0 L Lymph % (Auto) 40.8 H [place] % (Auto) 6.6 Eos % (Auto) 2.7 Baso % (Auto) 0.9 Neut # (Auto) 4.8 Lymph # (Auto) 4.0 [place] # (Auto) 0.7 Eos # (Auto) 0.3 Baso # (Auto) 0.1 Sodium 142 Potassium 4.2 Chloride 101 Carbon Dioxide 25 Anion Gap 21 H BUN 19 H Creatinine 0.7 Est GFR ( Amer) > 60 Est GFR (Non-Af Amer) > 60 POC Glucose (mg/dL) Random Glucose 146 H Calcium 10.2 Magnesium 1.8 Total Bilirubin 0.9 AST 78 H D ALT 32 Alkaline Phosphatase 90 Troponin I < 0.0120 NT-Pro-B Natriuret Pep 96.8 Total Protein 8.0 Albumin 4.6 Globulin 3.4 Albumin/Globulin Ratio 1.4 Triglycerides Cholesterol LDL Cholesterol Direct HDL Cholesterol Lipase 8941 H Urine Color Yellow Urine Clarity [place] Urine pH 6.0 Ur Specific [place] 1.014 Urine Protein Negative Urine Glucose (UA) Normal Urine Ketones Negative Urine Blood Negative Urine Nitrate Negative Urine Bilirubin Negative Urine Urobilinogen 2.0 H Ur Leukocyte Esterase 3+ H Urine WBC (Auto) 15 H Urine RBC (Auto) 2 Ur Squamous Epith Cells 6 H Urine Bacteria Rare 03/27/18 03/27/18 15:44 16:49 WBC RBC Hgb Hct MCV MCH MCHC RDW Plt Count MPV Neut % (Auto) Lymph % (Auto) [place] % (Auto) Eos % (Auto) Baso % (Auto) Neut # (Auto) Lymph # (Auto) [place] # (Auto) Eos # (Auto) Baso # (Auto) Sodium Potassium Chloride Carbon Dioxide Anion Gap BUN Creatinine Est GFR ( Amer) Est GFR (Non-Af Amer) POC Glucose (mg/dL) 118 H Random Glucose Calcium Magnesium Total Bilirubin AST ALT Alkaline Phosphatase Troponin I NT-Pro-B Natriuret Pep Total Protein Albumin Globulin Albumin/Globulin Ratio Triglycerides 208 H Cholesterol 252 H LDL Cholesterol Direct 158 H HDL Cholesterol 40 Lipase Urine Color Urine Clarity Urine pH Ur Specific [place] Urine Protein Urine Glucose (UA) Urine Ketones Urine Blood Urine Nitrate Urine Bilirubin Urine Urobilinogen Ur Leukocyte Esterase Urine WBC (Auto) Urine RBC (Auto) Ur Squamous Epith Cells Urine Bacteria Attending/Attestation - Attestation I have personally seen and examined this patient.: Yes I have fully participated in the care of the patient.: Yes I have reviewed all pertinent clinical information: Yes Notes (Text): Patient seen, examined, case discussed with medical support specialist. Patient seen in [facility] emergency room approximately 5:30 PM. Patient is deaf in both ears. Patient translated with daughter bedside communicating only in sign language patient does not read lips. Patient with a known history of chronic abdominal pain with recurrent pancreatitis recently came back from family trip. Had acute onset of epigastric pain with associated nausea and vomiting no hematemesis which prompted her to come to emergency room today. Also to note patient has had prior GI workup to the GI clinic wherein noted to have a stomach lesion over the cardio noting for positive spindle as well as positive for H pylori noted on endoscopy however patient did not follow-up for treatment of H. pylori. CT abdomen and pelvis showing larger diverticulum contained just to material arising from the second portion of the duodenum and likely compressing ampulla levator with a resultant mass effect on the distal common bile duct and moderate dilatation of the common bile duct measures 1.2 cm. Constipation no evidence of bowel obstruction. Fatty liver. Chest x-ray no active disease. Prior US from September 03: Round intramural subepithelial lesion noted in the cardia of the stomach but 1 cm distal to GE junction lesion appears to originate from the muscularis propria fine-needle biopsy was performed. Pathology noted for H. pylori in both spinal muscle stained as well patient did not follow-up (results). we'll keep nothing by mouth,IV fluids, abdominal ultrasound, consult GI> 1) Abdominal pain Acute Pancreatitis prior history of positive H. pylori Assessment and plan GI consulted, Dr. Matias on-call help appreciated - Lipase: 8941 Imaging: - CT abdomen and pelvis: 1. 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 2. Constipation. No evidence of bowel obstruction. Previous Workup: - Upper EUS 09/03/17: Prior US from September 03: Round intramural subepithelial lesion noted in the cardia of the stomach but 1 cm distal to GE junction lesion appears to originate from the muscularis propria fine-needle biopsy was performed. Pathology noted for H. pylori in both spinal muscle stained as well patient did not follow-up (results). - Biopsy from EUS showed + H. pylori - Pancreatic CT Protocol 09/2017: No peripancreatic inflammatory changes or fluid collections evident. Pancreatic atrophy. Recommend correlation with amylase and lipase. Management: - NPO, IVF, Zofran and Morphine PRN CBD dilation noted on CT Scan. Abdominal US order 2) Urinary Tract Infection prior history of positive H. pylori Assessment and plan UA - + LE, f/u urine culture Rocephin 1 gram daily started 03/27/18 3) Constipation Assessment and plan Dulcolax CO x1 4) Hypertension Assessment and plan HELD home medications due to NPO status: Norvasc 5mg daily, Lisinopril 10mg daily, HCTZ 12.5mg daily Patient is admitted on med/surg - will continue to monitor BP 5) Type 2 DM Assessment and plan Accuchecks Q6H due to NPO status ISS low, hypoglycemic protocol ordered f/u hemoglobin A1C 6) Hypercholesterolemia, Hyperlipidemia Assessment and plan Restarted home meds Lipitor -- (NF), Crestor (will hold since strict NPO) T choles: 252 LDL: HDL: 40 7) Hx Gastritis Assessment and plan Upper EUS 09/03/17: Prior US from September 03: Round intramural subepithelial lesion noted in the cardia of the stomach but 1 cm distal to GE junction lesion appears to originate from the muscularis propria fine-needle biopsy was performed. Pathology noted for H. pylori in both spinal muscle stained as well patient did not follow-up (results). 8) Prophylactic Measures GI PPX:Protonix; DVT ppx, SCDS Patient is deaf. Patient communicates through sign language. She does not read lips.
[2018-03-27] MEDS ORDERED: Sodium Chloride 0.9% 1,000 ML IV SCH (15:15)
[2018-03-27] MEDS ORDERED: Glucagon Recombinant 1 mg Inj IM PRN (15:17)
[2018-03-27] MEDS: (Novolin R) Insulin Human Regular 100 units/ml vial SC SCH ×2 (15:44→21:42)
[2018-03-27] MEDS ORDERED: Dextrose 50% SYRINGE Inj (50 ml) IV PRN (16:06)
[2018-03-27] MEDS: Sodium Chloride 0.9% 1,000 ML IV SCH ×2 (16:51→23:06)
[2018-03-27 17:05] LABS: HDL CHOLESTEROL 40 mg/dL (30-70)
[2018-03-27 17:16] LABS: LDL CHOLESTEROL 158 mg/dL (0-129)
[2018-03-27] MEDS ORDERED: Saccharomyces Boulardi 250 mg Cap PO SCH (20:00)
[2018-03-27] MEDS ORDERED: ROSUVASTATIN 10 MG PO SCH (22:00)
[2018-03-28] MEDS: (Novolin R) Insulin Human Regular 100 units/ml vial SC SCH ×4 (03:30→21:20)
[2018-03-28] MEDS: Sodium Chloride 0.9% 1,000 ML IV SCH (06:03)
[2018-03-28 07:53] LABS: BASO # 0.1 K/uL (0.0-0.2); BASO % 0.8 % (0.0-2.0); EOS # 0.2 K/uL (0.0-0.7); EOS % 2.4 % (0.0-4.0); LYMPH # 1.8 K/uL (1.0-4.3); LYMPH % 26.8 % (20.0-40.0); MEAN CELL VOLUME 82.2 fL (81.0-99.0); MEAN CORPUSCULAR HEMOGLOBIN 27.8 pg (27.0-31.0); MEAN CORPUSCULAR HGB CONC 33.9 g/dL (33.0-37.0); MEAN PLATELET VOLUME 8.6 fL (7.2-11.7); MONO # 0.6 K/uL (0.0-0.8); MONO % 8.7 % (0.0-10.0); NEUT # 4.2 K/uL (1.8-7.0); NEUT % 61.3 % (50.0-75.0); RBC 4.4 Mil/uL (3.80-5.20); RED CELL DISTRIBUTION WIDTH 13.9 % (11.5-14.5); WHITE BLOOD COUNT 6.9 K/uL (4.8-10.8)
[2018-03-28 07:56] LABS: HEMOGLOBIN 12.2 g/dL (11.0-16.0)
[2018-03-28 08:10] LABS: ALBUMIN 3.2 g/dL (3.5-5.0); BLOOD UREA NITROGEN 15 mg/dL (7-17); CALCIUM 8.5 mg/dl (8.6-10.4); GFR NON-AFRICAN AMERICAN > 60
[2018-03-28 08:11] LABS: ALB/GLOB RATIO 1.2 (1.0-2.1); ALT/SGPT 30 U/L (9-52); AST/SGOT 33 U/L (14-36)
--- NOTE | 2018-03-28 08:13 | CP.PCM.CON ---
Addendum entered and electronically signed by Eryn Joshi DO 03/28/18 09:52 : consider surgery consultation prior to discharge to discuss possible surgical resection indication of duodenal diverticulum Original Note: <AdiEryn - Last Filed: 03/28/18 09:32> History of Present Illness - History of Present Illness History of Present Illness: Gastroenterology Fellow/PGY6 Consult Note 82 year old female with PMH of Deafness, Pancreatitis (pancreatic head, unclear etiology) 05/2017, HTN, HLD, DM presenting with abdominal pain. Patient provides history through sign language communication with daughter at bedside. Daughter states, patient notes new-onset epigastric pain radiating to back for the last one week exacerbated postprandial.Sudden onset of five bilious vomitus episodes yesterday after having coffee and bread leading to ER presentation. Previously, patient noted intermittent RUQ pain for 9 months after discharge 2016 with no abdominal pain for last 3.5 months during stay in [facility] with daughter with return two weeks ago. Denies fever, chills, sweats, bloating, heartburn, acid reflux, diarrhea, constipation, melena, hematochezia, or unintentional weight loss. Admits to daily bowel movements. Patient seen in [facility] GI clinic 08/18/17 with workup of pancreatitis including CT pancreas protocol 09/2017 showed normal liver/gallbladder/bile ducts and pancreatic fatty atrophy. Patient also underwent EGD/ EUS 09/2017 showing H. 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 No prior colonoscopy. Family History- denies pancreas disease, stomach cancer, or colon cancer Social History- denies tobacco, alcohol, or illicit drug use Surgical History- none Review of Systems - Review of Systems Review of Systems: 12-point review of systems negative except for as above Past Patient History - Infectious Disease Hx of Infectious Diseases: None - Past Medical History & Family History Past Medical History?: Yes - Past Social History Smoking Status: Never Smoked - CARDIAC Hx Hypercholesterolemia: Yes Hx Hypertension: Yes - PULMONARY Hx Respiratory Disorders: No - NEUROLOGICAL Hx Neurological Disorder: No Hx Vertigo: Yes - HEENT Hx HEENT Problems: Yes Hx Deafness: Yes - RENAL Hx Chronic Kidney Disease: No - ENDOCRINE/METABOLIC Hx Endocrine Disorders: Yes Hx Diabetes Mellitus Type 2: Yes - HEMATOLOGICAL/ONCOLOGICAL Hx Blood Disorders: Yes Hx AIDS: No Hx Hepatitis C: No Hx Human Immunodeficiency Virus (HIV): No Hx Shingles: Yes - INTEGUMENTARY Hx Dermatological Problems: No - MUSCULOSKELETAL/RHEUMATOLOGICAL Hx Arthritis: Yes Hx Falls: No Hx Unsteady Gait: Yes - GASTROINTESTINAL Hx Gall Bladder Disease: Yes Hx Gastritis: Yes Hx Pancreatitis: Yes - GENITOURINARY/GYNECOLOGICAL Hx Genitourinary Disorders: No - PSYCHIATRIC Hx Substance Use: No - SURGICAL HISTORY Hx Surgeries: No - ANESTHESIA Hx Anesthesia: No Hx Anesthesia Reactions: No Meds Allergies/Adverse Reactions: Allergies Allergy/AdvReac Type Severity Reaction Status Date / Time No Known Allergies Allergy Verified 03/27/18 12:23 - Medications Medications: Current Medications Dextrose (Dextrose 50% Inj) 0 ml IV STAT PRN; Protocol PRN Reason: Hypoglycemia Protocol Dextrose (Glutose 15) 0 gm PO ONCE PRN; Protocol PRN Reason: Hypoglycemia Protocol Enoxaparin Sodium (Lovenox) 40 mg SC DAILY [facility] Glucagon (Glucagen Diagnostic Kit) 0 mg IM STAT PRN; Protocol PRN Reason: Hypoglycemia Protocol Dextrose (Dextrose 5% In Water 1000 Ml) 1,000 mls @ 0 mls/hr IV .Q0M PRN; Protocol; Per Protocol PRN Reason: Hypoglycemia Protocol Ceftriaxone Sodium 1 gm/ (Sodium Chloride) 100 mls @ 100 mls/hr IVPB DAILY [facility] PRN Reason: Protocol Sodium Chloride (Sodium Chloride 0.9%) 1,000 mls @ 150 mls/hr IV .Q6H40M [facility] Last Admin: 03/28/18 06:03 Dose: 150 mls/hr Insulin Human Regular (Novolin R) 0 unit SC Q6H [facility] PRN Reason: Protocol Last Admin: 03/28/18 03:30 Dose: Not Given Morphine Sulfate (Morphine) 1 mg IVP Q4 PRN PRN Reason: Pain, severe (8-10) Last Admin: 03/28/18 00:00 Dose: 1 mg Ondansetron HCl (Zofran Inj) 4 mg IVP Q6 PRN PRN Reason: Nausea/Vomiting Pantoprazole Sodium (Protonix Inj) 40 mg IVP DAILY [facility] Pneumococcal Polyvalent Vaccine (Pneumovax 23 Vaccine) 0.5 ml IM .ONCE ONE Stop: 03/30/18 10:01 Physical Exam - Constitutional Appears: Non-toxic, No Acute Distress - Head Exam Head Exam: ATRAUMATIC, NORMOCEPHALIC - Eye Exam Eye Exam: EOMI, PERRL. absent: Scleral icterus Pupil Exam: PERRL. absent: Miosis, Mydriatic - ENT Exam ENT Exam: Mucous Membranes Moist, Normal Oropharynx - Neck Exam Neck exam: Positive for: Full Rom, Normal Inspection - Respiratory Exam Respiratory Exam: Clear to Auscultation Bilateral. absent: Rales, Rhonchi, Wheezes - Cardiovascular Exam Cardiovascular Exam: RRR, +S1, +S2. absent: Gallop, Rubs - GI/Abdominal Exam GI & Abdominal Exam: Normal Bowel Sounds, Soft. absent: Distended, Firm, Guarding, Organomegaly, Rebound, Rigid, Tenderness - Extremities Exam Extremities exam: Positive for: normal inspection. Negative for: pedal edema - Neurological Exam Neurological exam: Alert, Oriented x3 - Psychiatric Exam Psychiatric exam: Normal Affect, Normal Mood - Skin Skin Exam: Dry, Intact, Normal Color, Warm Results - Vital Signs Recent Vital Signs: Last Vital Signs Temp 97.6 F 03/28/18 00:00 Pulse 87 03/28/18 00:00 Resp 18 03/28/18 00:00 BP 123/64 03/28/18 00:00 Pulse Ox 98 03/28/18 00:00 - Labs Result Diagrams: 03/28/18 07:38 03/28/18 07:38 Labs: Laboratory Results - last 24 hr 03/27/18 03/27/18 03/27/18 12:46 12:46 12:54 WBC 9.9 D RBC 5.24 H Hgb 14.8 Hct 42.9 MCV 81.8 D MCH 28.2 MCHC 34.5 RDW 14.1 Plt Count 246 MPV 9.0 Neut % (Auto) 49.0 L Lymph % (Auto) 40.8 H [place] % (Auto) 6.6 Eos % (Auto) 2.7 Baso % (Auto) 0.9 Neut # (Auto) 4.8 Lymph # (Auto) 4.0 [place] # (Auto) 0.7 Eos # (Auto) 0.3 Baso # (Auto) 0.1 Sodium 142 Potassium 4.2 Chloride 101 Carbon Dioxide 25 Anion Gap 21 H BUN 19 H Creatinine 0.7 Est GFR ( Amer) > 60 Est GFR (Non-Af Amer) > 60 POC Glucose (mg/dL) Random Glucose 146 H Calcium 10.2 Magnesium 1.8 Total Bilirubin 0.9 AST 78 H D ALT 32 Alkaline Phosphatase 90 Troponin I < 0.0120 NT-Pro-B Natriuret Pep 96.8 Total Protein 8.0 Albumin 4.6 Globulin 3.4 Albumin/Globulin Ratio 1.4 Triglycerides Cholesterol LDL Cholesterol Direct HDL Cholesterol Lipase 8941 H Urine Color Yellow Urine Clarity [place] Urine pH 6.0 Ur Specific [place] 1.014 Urine Protein Negative Urine Glucose (UA) Normal Urine Ketones Negative Urine Blood Negative Urine Nitrate Negative Urine Bilirubin Negative Urine Urobilinogen 2.0 H Ur Leukocyte Esterase 3+ H Urine WBC (Auto) 15 H Urine RBC (Auto) 2 Ur Squamous Epith Cells 6 H Urine Bacteria Rare 03/27/18 03/27/18 03/27/18 15:44 16:49 21:14 WBC RBC Hgb Hct MCV MCH MCHC RDW Plt Count MPV Neut % (Auto) Lymph % (Auto) [place] % (Auto) Eos % (Auto) Baso % (Auto) Neut # (Auto) Lymph # (Auto) [place] # (Auto) Eos # (Auto) Baso # (Auto) Sodium Potassium Chloride Carbon Dioxide Anion Gap BUN Creatinine Est GFR ( Amer) Est GFR (Non-Af Amer) POC Glucose (mg/dL) 118 H 142 H Random Glucose Calcium Magnesium Total Bilirubin AST ALT Alkaline Phosphatase Troponin I NT-Pro-B Natriuret Pep Total Protein Albumin Globulin Albumin/Globulin Ratio Triglycerides 208 H Cholesterol 252 H LDL Cholesterol Direct 158 H HDL Cholesterol 40 Lipase Urine Color Urine Clarity Urine pH Ur Specific [place] Urine Protein Urine Glucose (UA) Urine Ketones Urine Blood Urine Nitrate Urine Bilirubin Urine Urobilinogen Ur Leukocyte Esterase Urine WBC (Auto) Urine RBC (Auto) Ur Squamous Epith Cells Urine Bacteria 03/28/18 03/28/18 03/28/18 03:23 07:03 07:38 WBC 6.9 RBC 4.40 Hgb 12.2 D Hct 36.1 MCV 82.2 MCH 27.8 MCHC 33.9 RDW 13.9 Plt Count 187 MPV 8.6 Neut % (Auto) 61.3 Lymph % (Auto) 26.8 [place] % (Auto) 8.7 Eos % (Auto) 2.4 Baso % (Auto) 0.8 Neut # (Auto) 4.2 Lymph # (Auto) 1.8 [place] # (Auto) 0.6 Eos # (Auto) 0.2 Baso # (Auto) 0.1 Sodium Potassium Chloride Carbon Dioxide Anion Gap BUN Creatinine Est GFR ( Amer) Est GFR (Non-Af Amer) POC Glucose (mg/dL) 116 H 98 Random Glucose Calcium Magnesium Total Bilirubin AST ALT Alkaline Phosphatase Troponin I NT-Pro-B Natriuret Pep Total Protein Albumin Globulin Albumin/Globulin Ratio Triglycerides Cholesterol LDL Cholesterol Direct HDL Cholesterol Lipase Urine Color Urine Clarity Urine pH Ur Specific [place] Urine Protein Urine Glucose (UA) Urine Ketones Urine Blood Urine Nitrate Urine Bilirubin Urine Urobilinogen Ur Leukocyte Esterase Urine WBC (Auto) Urine RBC (Auto) Ur Squamous Epith Cells Urine Bacteria Assessment & Plan - Assessment and Plan (Free Text) Assessment: 82 year old female with PMH of Deafness, Pancreatitis (pancreatic head, unclear etiology) 05/2017, HTN, HLD, DM presenting with abdominal pain. Active treatment of pancreatitis (unclear etiology), UTI, and Prerenal Azotemia. CT A/ P IV contrast showing CBD of 1.2cm. [facility] GI clinic 08/18/17 - CT pancreas protocol 09/2017 -liver/gallbladder /bile ducts and pancreatic fatty atrophy EGD/ EUS 09/2017- H. 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 CBD 7mm, minimal gallbladder sludge, normal pancreas 16mm subepithelial cardia GIST, no significant mitosis/necrosis Plan: -DDx- recurrent pancreatitis 2/2 periampullary duodenal diverticulum causing intermittent compression of CBD leading to dilatation less likely- autoimmune/medication-induced/ idiopathic -clear liquid diet, advance as tolerated -IVFs LR 150mL/hr (received 2L IVFs) -U/S- no gallstones on my read, await final report -EUS 09/2017- minimal sludge gallbladder -normal LFTs -ordered IgG4 -renal function improved -Miralax daily -annual EGD/EUS of GIST with very low malignancy risk given <2cm and no significant mitosis -recommend H. pylori triple therapy on discharge -will follow clinical course <Keron Pappas - Last Filed: 03/28/18 14:01> Meds - Medications Medications: Current Medications Dextrose (Dextrose 50% Inj) 0 ml IV STAT PRN; Protocol PRN Reason: Hypoglycemia Protocol Dextrose (Glutose 15) 0 gm PO ONCE PRN; Protocol PRN Reason: Hypoglycemia Protocol Enoxaparin Sodium (Lovenox) 40 mg SC DAILY [facility] Last Admin: 03/28/18 09:57 Dose: 40 mg Glucagon (Glucagen Diagnostic Kit) 0 mg IM STAT PRN; Protocol PRN Reason: Hypoglycemia Protocol Dextrose (Dextrose 5% In Water 1000 Ml) 1,000 mls @ 0 mls/hr IV .Q0M PRN; Protocol; Per Protocol PRN Reason: Hypoglycemia Protocol Ceftriaxone Sodium 1 gm/ (Sodium Chloride) 100 mls @ 100 mls/hr IVPB DAILY [facility] PRN Reason: Protocol Last Admin: 03/28/18 09:56 Dose: 100 mls/hr Lactated Ringer's (Lactated Ringer's) 1,000 mls @ 150 mls/hr IV .Q6H40M [facility] Stop: 03/29/18 04:44 Last Admin: 03/28/18 09:59 Dose: 150 mls/hr Insulin Human Regular (Novolin R) 0 unit SC Q6H [facility] PRN Reason: Protocol Last Admin: 03/28/18 09:46 Dose: Not Given Morphine Sulfate (Morphine) 1 mg IVP Q4 PRN PRN Reason: Pain, severe (8-10) Last Admin: 03/28/18 00:00 Dose: 1 mg Ondansetron HCl (Zofran Inj) 4 mg IVP Q6 PRN PRN Reason: Nausea/Vomiting Pantoprazole Sodium (Protonix Inj) 40 mg IVP DAILY [facility] Last Admin: 03/28/18 09:57 Dose: 40 mg Pneumococcal Polyvalent Vaccine (Pneumovax 23 Vaccine) 0.5 ml IM .ONCE ONE Stop: 03/30/18 10:01 Polyethylene Glycol (Miralax) 17 gm PO DAILY [facility] Last Admin: 03/28/18 09:58 Dose: 17 gm Results - Vital Signs Recent Vital Signs: Last Vital Signs Temp 98.6 F 03/28/18 08:00 Pulse 68 03/28/18 08:00 Resp 20 03/28/18 08:00 BP 124/65 03/28/18 08:00 Pulse Ox 95 03/28/18 08:00 - Labs Result Diagrams: 03/28/18 07:38 03/28/18 07:38 Labs: Laboratory Results - last 24 hr 03/27/18 03/27/18 03/27/18 15:44 16:49 16:49 WBC RBC Hgb Hct MCV MCH MCHC RDW Plt Count MPV Neut % (Auto) Lymph % (Auto) [place] % (Auto) Eos % (Auto) Baso % (Auto) Neut # (Auto) Lymph # (Auto) [place] # (Auto) Eos # (Auto) Baso # (Auto) Sodium Potassium Chloride Carbon Dioxide Anion Gap BUN Creatinine Est GFR ( Amer) Est GFR (Non-Af Amer) POC Glucose (mg/dL) 118 H Random Glucose Hemoglobin A1c 6.9 H Calcium Phosphorus Magnesium Total Bilirubin AST ALT Alkaline Phosphatase Total Protein Albumin Globulin Albumin/Globulin Ratio Triglycerides 208 H Cholesterol 252 H LDL Cholesterol Direct 158 H HDL Cholesterol 40 Lipase 03/27/18 03/28/18 03/28/18 21:14 03:23 07:03 WBC RBC Hgb Hct MCV MCH MCHC RDW Plt Count MPV Neut % (Auto) Lymph % (Auto) [place] % (Auto) Eos % (Auto) Baso % (Auto) Neut # (Auto) Lymph # (Auto) [place] # (Auto) Eos # (Auto) Baso # (Auto) Sodium Potassium Chloride Carbon Dioxide Anion Gap BUN Creatinine Est GFR ( Amer) Est GFR (Non-Af Amer) POC Glucose (mg/dL) 142 H 116 H 98 Random Glucose Hemoglobin A1c Calcium Phosphorus Magnesium Total Bilirubin AST ALT Alkaline Phosphatase Total Protein Albumin Globulin Albumin/Globulin Ratio Triglycerides Cholesterol LDL Cholesterol Direct HDL Cholesterol Lipase 03/28/18 03/28/18 03/28/18 07:38 07:38 11:02 WBC 6.9 RBC 4.40 Hgb 12.2 D Hct 36.1 MCV 82.2 MCH 27.8 MCHC 33.9 RDW 13.9 Plt Count 187 MPV 8.6 Neut % (Auto) 61.3 Lymph % (Auto) 26.8 [place] % (Auto) 8.7 Eos % (Auto) 2.4 Baso % (Auto) 0.8 Neut # (Auto) 4.2 Lymph # (Auto) 1.8 [place] # (Auto) 0.6 Eos # (Auto) 0.2 Baso # (Auto) 0.1 Sodium 141 Potassium 3.8 Chloride 107 Carbon Dioxide 25 Anion Gap 13 BUN 15 Creatinine 0.8 Est GFR ( Amer) > 60 Est GFR (Non-Af Amer) > 60 POC Glucose (mg/dL) 139 H Random Glucose 101 Hemoglobin A1c Calcium 8.5 L Phosphorus 4.0 Magnesium 1.6 Total Bilirubin 0.5 AST 33 ALT 30 Alkaline Phosphatase 62 Total Protein 5.8 L Albumin 3.2 L D Globulin 2.6 Albumin/Globulin Ratio 1.2 Triglycerides Cholesterol LDL Cholesterol Direct HDL Cholesterol Lipase 3504 H Attending/Attestation - Attestation I have personally seen and examined this patient.: Yes I have fully participated in the care of the patient.: Yes I have reviewed all pertinent clinical information: Yes Notes (Text): 03/28/18 13:52 I have seen and examined patient with GI fellow. Agree with above documentation with the following additions. In brief, this is an 82 year old female with history of DM, HTN, hyperlipidemia, deaf/mute, who presents to hospital with complaint of sudden onset abdominal pain. Assistance with communication via sign language provided through daughter at bedside. She describes sudden onset pain which began yesterday in epigastric region associated with multiple episodes of nausea and vomiting. She denies fever/ chills, weight loss, rectal bleeding, or change in bowel habits. She has had prior episodes of pancreatitis before, extensive workup including EUS did not reveal any significant pancreatic abnormalities, though she was noted to have helicobacter pylori associated gastritis and a 16mm gastric GIST. Currently she is seen resting in bed comfortably, her abdominal pain has resolved and she has not had any recurrent episodes of vomiting. She is hungry and asking for diet to be advanced. DM / HTN Hyperlipidemia Abdominal pain - chemical pancreatitis CT imaging reviewed by me showing large duodenal diverticulum filled with debris causing compression on nearby CBD, normal appearing pancreas - Advance diet slowly as tolerated - Obtain IGG4 for evaluation of autoimmune disease - Would suggest treatment of helicobacter pylori associated gastritis with triple antibiotic therapy - Patient should have repeat endoscopic evaluation of gastric GIST for follow up , will need to be arranged with advanced endoscopist - Would consider surgical consultation given GB findings on US along with large duodenal diverticulum thought to be causing transient episodes of biliary ductal compression - No further planned GI intervention, will sign off case. Please reconsult as necessary, thank you.
[2018-03-28 09:24] VITALS: RESP 20
--- NOTE | 2018-03-28 09:31 | US ---
Abdominal ultrasound HISTORY: Cholelithiasis. Dilated common bile duct. Comparison CT dated 03/27/2018 Technique: Real-time sonography was performed through the abdomen. Findings: Liver: 12.6 centimeters in length. Increased echogenicity of the hepatic parenchymal cortex suggestive for fatty infiltration versus hepatic parenchymal disease. Clinical correlation. Gallbladder: No calculi or sludge. Thickened gallbladder wall measuring up to 4.7 millimeters. Associated gallbladder wall edema. Negative sonographic Jay's sign. Dilated common bile duct measuring up to 7 millimeters. Limited visualization of the pancreas. Spleen measures 8.9 centimeters in length, within normal limits. Visualized aorta and IVC are preserved. Right kidney: 8.6 x 3.9 x 4.0 centimeters. No calculi or hydronephrosis. Left kidney: 8.5 x 4.6 x 3.9 centimeters. No calculi or hydronephrosis. Impression: Dilated common bile duct measuring up to 7 millimeters. Clinical correlation. Thickened gallbladder wall measuring up to 4.7 millimeters. Associated gallbladder wall edema. Clinical correlation. Increased echogenicity of the hepatic parenchymal cortex suggestive for fatty infiltration versus hepatic parenchymal disease. Clinical correlation. Limited visualization of pancreas.
[2018-03-28] MEDS: Enoxaparin 40 mg Syringe SC SCH (09:57)
[2018-03-28] MEDS: POLYETHYLENE GLYCOL 3350 17 GM/Dose PACKET PO SCH (09:58)
[2018-03-28] MEDS: Lactated Ringer's 1,000 ML IV SCH ×2 (09:59→18:26)
[2018-03-28] MEDS ORDERED: POLYETHYLENE GLYCOL 3350 17 GM/Dose PACKET PO SCH (10:00)
[2018-03-28 11:46] LABS: LIPASE 3504 U/L (23-300)
--- NOTE | 2018-03-28 16:50 | CP.PCM.PN ---
<Peterson Galo - Last Filed: 03/28/18 19:48> Subjective - Date & Time of Evaluation Date of Evaluation: 03/28/18 Time of Evaluation: 08:40 - Subjective Subjective: PGY-[address] Lara Patient is seen and examined at bedside. Patient is deaf bilaterally and unable to hear or understanding questions. Patient's Daugther is at bedside and assited with communicating with patient in sign language. Patient states feeling much better and her pain to have improved significantly. Patient denies nausea or vomiting. Patient is currently on clear liquid diet and tolerating it. Patient reports one regular bowel movement with suppository. Patient has not been out of bed. Objective - Vital Signs/Intake and Output Vital Signs (last 24 hours): Temp Pulse Resp BP Pulse Ox 98.6 F 68 20 124/65 95 03/28/18 08:00 03/28/18 08:00 03/28/18 08:00 03/28/18 08:00 03/28/18 08:00 Intake and Output: 03/28/18 03/28/18 06:59 18:59 Intake Total 1200 Balance 1200 - Medications Medications: Current Medications Dextrose (Dextrose 50% Inj) 0 ml IV STAT PRN; Protocol PRN Reason: Hypoglycemia Protocol Dextrose (Glutose 15) 0 gm PO ONCE PRN; Protocol PRN Reason: Hypoglycemia Protocol Enoxaparin Sodium (Lovenox) 40 mg SC DAILY [facility] Last Admin: 03/28/18 09:57 Dose: 40 mg Glucagon (Glucagen Diagnostic Kit) 0 mg IM STAT PRN; Protocol PRN Reason: Hypoglycemia Protocol Dextrose (Dextrose 5% In Water 1000 Ml) 1,000 mls @ 0 mls/hr IV .Q0M PRN; Protocol; Per Protocol PRN Reason: Hypoglycemia Protocol Ceftriaxone Sodium 1 gm/ (Sodium Chloride) 100 mls @ 100 mls/hr IVPB DAILY [facility] PRN Reason: Protocol Last Admin: 03/28/18 09:56 Dose: 100 mls/hr Lactated Ringer's (Lactated Ringer's) 1,000 mls @ 150 mls/hr IV .Q6H40M [facility] Stop: 03/29/18 04:44 Last Admin: 03/28/18 09:59 Dose: 150 mls/hr Insulin Human Regular (Novolin R) 0 unit SC Q6H [facility] PRN Reason: Protocol Last Admin: 03/28/18 09:46 Dose: Not Given Morphine Sulfate (Morphine) 1 mg IVP Q4 PRN PRN Reason: Pain, severe (8-10) Last Admin: 03/28/18 00:00 Dose: 1 mg Ondansetron HCl (Zofran Inj) 4 mg IVP Q6 PRN PRN Reason: Nausea/Vomiting Pantoprazole Sodium (Protonix Inj) 40 mg IVP DAILY [facility] Last Admin: 03/28/18 09:57 Dose: 40 mg Pneumococcal Polyvalent Vaccine (Pneumovax 23 Vaccine) 0.5 ml IM .ONCE ONE Stop: 03/30/18 10:01 Polyethylene Glycol (Miralax) 17 gm PO DAILY [facility] Last Admin: 03/28/18 09:58 Dose: 17 gm - Labs Labs: 03/28/18 07:38 03/28/18 07:38 - Constitutional Appears: Non-toxic, No Acute Distress - Head Exam Head Exam: ATRAUMATIC, NORMAL INSPECTION, NORMOCEPHALIC - Eye Exam Eye Exam: EOMI, Normal appearance - ENT Exam ENT Exam: Mucous Membranes Moist, Normal Exam - Neck Exam Neck Exam: Full ROM, Normal Inspection - Respiratory Exam Respiratory Exam: Clear to Ausculation Bilateral, NORMAL BREATHING PATTERN. absent: Rales, Rhonchi, Wheezes - Cardiovascular Exam Cardiovascular Exam: REGULAR RHYTHM, +S1, +S2. absent: Bradycardia, Murmur - GI/Abdominal Exam GI & Abdominal Exam: Soft, Tenderness, Normal Bowel Sounds. absent: Distended, Firm, Guarding, Rigid, Rebound Additional comments: tenderness on deep palpation in suprapubic area and Left lower quadrant - Extremities Exam Extremities Exam: Full ROM, Normal Capillary Refill, Normal Inspection - Back Exam Back Exam: Full ROM, NORMAL INSPECTION - Neurological Exam Neurological Exam: Alert, Awake - Psychiatric Exam Psychiatric exam: Normal Affect, Normal Mood - Skin Skin Exam: Intact, Normal Color, Warm Assessment and Plan - Assessment and Plan (Free Text) Plan: 1) Abdominal pain/Acute Pancreatitis/prior history of positive H. pylori Imaging - CT abdomen and pelvis: 1. 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 2. Constipation. No evidence of bowel obstruction. - Abdominal U/S - dilated common bile duct measuring up to 7 mm. Thickened gallbladder wall measuring up to 4.7 mm. Associated gallbladder wall edema. Increased echonegenicity of hepatic parenchymal cortex disease. Limited visualization of pancreas. Labs: - Lipase 03/28 3504 from 8941 - WBC 6.9 Vitals - Afebrile at 98.6 Blood cx - no growth after 24 hours Previous Workup: - Upper EUS 09/03/17: Prior US from September 03: Round intramural subepithelial lesion noted in the cardia of the stomach but 1 cm distal to GE junction lesion appears to originate from the muscularis propria fine-needle biopsy was performed. Pathology noted for H. pylori in both spinal muscle stained as well patient did not follow-up (results). - Biopsy from EUS showed + H. pylori - Pancreatic CT Protocol 09/2017: No peripancreatic inflammatory changes or fluid collections evident. Pancreatic atrophy. Recommend correlation with amylase and lipase. GI Fellow Dr Joshi Consulted - Advance diet slowly as tolerated - IGG4 for eval of autoimmune disease - suggest treatment of h. 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 pylori - UA - + LE, - f/u urine culture - Rocephin 1 gram daily started 03/27/18, Day #2 3) Constipation -BM movement after dulcolax AR x 1 - continue monitor BM 4) Hypertension - consider restarting the following home meds Norvasc 5mg daily, Lisinopril 10mg daily, HCTZ 12.5mg daily - will continue to monitor BP 5) Type 2 DM - continue accuchecks -ISS low, hypoglycemic protocol ordered - HbA1C -- 6.9 - Patient's home medication - metformin 1000 mg PO BID - consider re-starting medication 6) Hypercholesterolemia, Hyperlipidemia - consider restarting home meds Lipitor -- (NF) Crestor -T choles: 252 LDL: HDL: 40 7) Hx Gastritis Upper EUS 09/03/17: Prior US from September 03: Round intramural subepithelial lesion noted in the cardia of the stomach but 1 cm distal to GE junction lesion appears to originate from the muscularis propria fine-needle biopsy was performed. Pathology noted for H. pylori in both spinal muscle stained as well patient did not follow-up (results). 8) Prophylactic Measures -GI PPX:Protonix IVP; DVT ppx, SCDS, lovenox -Patient is deaf. Patient communicates through sign language. She does not read lips. Plan discussed with Dr Jane Galo, PGY-1 <Carmen Lara V - Last Filed: 03/28/18 23:12> Objective - Vital Signs/Intake and Output Vital Signs (last 24 hours): Temp Pulse Resp BP Pulse Ox 97.8 F 73 20 115/73 99 03/28/18 18:10 03/28/18 18:10 03/28/18 18:10 03/28/18 18:10 03/28/18 18:10 - Medications Medications: Current Medications Dextrose (Dextrose 50% Inj) 0 ml IV STAT PRN; Protocol PRN Reason: Hypoglycemia Protocol Dextrose (Glutose 15) 0 gm PO ONCE PRN; Protocol PRN Reason: Hypoglycemia Protocol Enoxaparin Sodium (Lovenox) 40 mg SC DAILY [facility] Last Admin: 03/28/18 09:57 Dose: 40 mg Glucagon (Glucagen Diagnostic Kit) 0 mg IM STAT PRN; Protocol PRN Reason: Hypoglycemia Protocol Dextrose (Dextrose 5% In Water 1000 Ml) 1,000 mls @ 0 mls/hr IV .Q0M PRN; Protocol; Per Protocol PRN Reason: Hypoglycemia Protocol Ceftriaxone Sodium 1 gm/ (Sodium Chloride) 100 mls @ 100 mls/hr IVPB DAILY [facility] PRN Reason: Protocol Last Admin: 03/28/18 09:56 Dose: 100 mls/hr Lactated Ringer's (Lactated Ringer's) 1,000 mls @ 150 mls/hr IV .Q6H40M [facility] Stop: 03/29/18 04:44 Last Admin: 09/24/18 18:26 Dose: 150 mls/hr Insulin Human Regular (Novolin R) 0 unit SC Q6H [facility] PRN Reason: Protocol Last Admin: 03/28/18 21:20 Dose: Not Given Morphine Sulfate (Morphine) 1 mg IVP Q4 PRN PRN Reason: Pain, severe (8-10) Last Admin: 03/28/18 00:00 Dose: 1 mg Ondansetron HCl (Zofran Inj) 4 mg IVP Q6 PRN PRN Reason: Nausea/Vomiting Pantoprazole Sodium (Protonix Inj) 40 mg IVP DAILY [facility] Last Admin: 03/28/18 09:57 Dose: 40 mg Pneumococcal Polyvalent Vaccine (Pneumovax 23 Vaccine) 0.5 ml IM .ONCE ONE Stop: 03/30/18 10:01 Polyethylene Glycol (Miralax) 17 gm PO DAILY [facility] Last Admin: 03/28/18 09:58 Dose: 17 gm - Labs Labs: 03/28/18 07:38 03/28/18 07:38 Attending/Attestation - Attestation I have personally seen and examined this patient.: Yes I have fully participated in the care of the patient.: Yes I have reviewed all pertinent clinical information, including history, physical exam and plan: Yes Notes (Text): Patient seen, examined, case discussed with medical transcription radiology. Patient seen and evaluated by GI diet advanced by GI. Patient reports a abdominal pain has improved. Patient has had a bowel movement. GI has signed off. GI has also recommended for general surgery eval given large diverticulum compressing the ampulla of Vater. We'll follow up with surgery. We will for now hold antihypertensives gives but patient's blood pressure is appropriate. We will switch Accu-Cheks every 6 to Q before meals at bedtime. Patient's A1c is 6.9. Patient had stopped her metformin twice day to once a day given that she thought the sugars were controlled showing less of her medication she will likely need metformin 500 mg by mouth twice a day pending surgery eval. 1) Abdominal pain Acute chemical Pancreatitis Prior history of positive H. pylori * GI consulted, Dr. Matias on-call help appreciated * Lipase: 8941, repeat improved Imaging: * CT abdomen and pelvis: 1. 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 2. Constipation. No evidence of bowel obstruction. * Abdominal ultrasound: Dilated common bile duct measuring 7 mm. Thickened gallbladder wall measuring up to 4.7 mm associated gallbladder wall edema. Increased echogenicity of the hepatic parenchymal cortex suggestive for fatty infiltration versus hepatic parenchymal disease. Limited visualization of pancreas. * Gen. surgery evaluation recommended by GI. Given both gallbladder findings on ultrasound is also CT scan. Previous Workup: - Upper EUS 09/03/17: Prior US from September 03: Round intramural subepithelial lesion noted in the cardia of the stomach but 1 cm distal to GE junction lesion appears to originate from the muscularis propria fine-needle biopsy was performed. Pathology noted for H. pylori in both spinal muscle stained as well patient did not follow-up (results). - Biopsy from EUS showed + H. pylori * GI does recommend to for patient to do triple therapy - Pancreatic CT Protocol 09/2017: No peripancreatic inflammatory changes or fluid collections evident. Pancreatic atrophy. Recommend correlation with amylase and lipase. 2) Urinary Tract Infection Assessment and plan UA - + LE, f/u urine culture pending Rocephin 1 gram daily started 03/27/18 3) Constipation Assessment and plan Dulcolax AR x1 MiraLAX daily 4) Hypertension Assessment and plan HELD home medications due to NPO status: Norvasc 5mg daily, Lisinopril 10mg daily, HCTZ 12.5mg daily Patient is admitted on med/surg - will continue to monitor BP 5) Type 2 DM Assessment and plan * A1c 6.9. * Accu-Cheks changed to before meals at bedtime as well as insulin sliding scale * A she likely on discharge will need metformin 500 mg by mouth twice a day 6) Hypercholesterolemia, Hyperlipidemia Assessment and plan Restarted home meds Lipitor -- (NF), Crestor (will hold since strict NPO) T choles: 252 LDL: HDL: 40 7) Hx Gastritis Assessment and plan Upper EUS 09/03/17: Prior US from September 03: Round intramural subepithelial lesion noted in the cardia of the stomach but 1 cm distal to GE junction lesion appears to originate from the muscularis propria fine-needle biopsy was performed. Pathology noted for H. pylori in both spinal muscle stained as well patient did not follow-up (results). 8) Prophylactic Measures GI PPX:Protonix; DVT ppx, SCDS Patient is deaf. Patient communicates through sign language. She does not read lips. Disposition: GI has advance diet and signed off. GI has recommended for surgery eval in light of the abdominal ultrasound findings as well as CAT scan we will follow-up with general surgery. Pending general surgery eval to determine discharge planning.
--- NOTE | 2018-03-28 19:02 | CARD ---
APPROVED REPORT Date of service: 03/27/2018 EKG Measurement Heart [id number] <Conclusion> Sinus rhythm with occasional premature ventricular complexes Left axis deviation Left bundle branch block Abnormal ECG
--- NOTE | 2018-03-28 22:17 | CP.PCM.CON ---
History of Present Illness - History of Present Illness History of Present Illness: General surgery consult note for Dr. Arelis Mazariegos, PGY-2 Pt S & E at bedside at 2150. Pt deaf & mute, history as per EMR, daughter with sign language. 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 Pt admitted to hospital for epigastric abdominal pain diagnosed as pancreatitis, nausea, emesis. Pt currently without abdominal pain, nausea, or vomiting. Pt admits to [facility], indicates that she hasn't had her BP meds. ROS unobtainable due to deaf/mute status. In hospital- lipase 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 Constipation. No evidence of bowel obstruction. Fatty liver. PMH: deafness, mute, pancreatitis, HLD, HTN, DM PSH: Denies All: NKDA SH: Denies ETOH, tobacco or illicit drug use FH: Non contributory Review of Systems - Review of Systems Systems not reviewed;Unavailable: Other (deaf/mute) All systems: reviewed and no additional remarkable complaints except Past Patient History - Infectious Disease Hx of Infectious Diseases: None - Past Medical History & Family History Past Medical History?: Yes - Past Social History Smoking Status: Never Smoked - CARDIAC Hx Hypercholesterolemia: Yes Hx Hypertension: Yes - PULMONARY Hx Respiratory Disorders: No - NEUROLOGICAL Hx Neurological Disorder: No Hx Vertigo: Yes - HEENT Hx HEENT Problems: Yes Hx Deafness: Yes - RENAL Hx Chronic Kidney Disease: No - ENDOCRINE/METABOLIC Hx Endocrine Disorders: Yes Hx Diabetes Mellitus Type 2: Yes - HEMATOLOGICAL/ONCOLOGICAL Hx Blood Disorders: Yes Hx AIDS: No Hx Hepatitis C: No Hx Human Immunodeficiency Virus (HIV): No Hx Shingles: Yes - INTEGUMENTARY Hx Dermatological Problems: No - MUSCULOSKELETAL/RHEUMATOLOGICAL Hx Arthritis: Yes Hx Falls: No Hx Unsteady Gait: Yes - GASTROINTESTINAL Hx Gall Bladder Disease: Yes Hx Gastritis: Yes Hx Pancreatitis: Yes - GENITOURINARY/GYNECOLOGICAL Hx Genitourinary Disorders: No - PSYCHIATRIC Hx Substance Use: No - SURGICAL HISTORY Hx Surgeries: No - ANESTHESIA Hx Anesthesia: No Hx Anesthesia Reactions: No Meds Allergies/Adverse Reactions: Allergies Allergy/AdvReac Type Severity Reaction Status Date / Time No Known Allergies Allergy Verified 03/27/18 12:23 - Medications Medications: Current Medications Dextrose (Dextrose 50% Inj) 0 ml IV STAT PRN; Protocol PRN Reason: Hypoglycemia Protocol Dextrose (Glutose 15) 0 gm PO ONCE PRN; Protocol PRN Reason: Hypoglycemia Protocol Enoxaparin Sodium (Lovenox) 40 mg SC DAILY [facility] Last Admin: 03/28/18 09:57 Dose: 40 mg Glucagon (Glucagen Diagnostic Kit) 0 mg IM STAT PRN; Protocol PRN Reason: Hypoglycemia Protocol Dextrose (Dextrose 5% In Water 1000 Ml) 1,000 mls @ 0 mls/hr IV .Q0M PRN; Protocol; Per Protocol PRN Reason: Hypoglycemia Protocol Ceftriaxone Sodium 1 gm/ (Sodium Chloride) 100 mls @ 100 mls/hr IVPB DAILY [facility] PRN Reason: Protocol Last Admin: 03/28/18 09:56 Dose: 100 mls/hr Lactated Ringer's (Lactated Ringer's) 1,000 mls @ 150 mls/hr IV .Q6H40M [facility] Stop: 03/29/18 04:44 Last Admin: 03/28/18 18:26 Dose: 150 mls/hr Insulin Human Regular (Novolin R) 0 unit SC Q6H [facility] PRN Reason: Protocol Last Admin: 03/28/18 21:20 Dose: Not Given Morphine Sulfate (Morphine) 1 mg IVP Q4 PRN PRN Reason: Pain, severe (8-10) Last Admin: 03/28/18 00:00 Dose: 1 mg Ondansetron HCl (Zofran Inj) 4 mg IVP Q6 PRN PRN Reason: Nausea/Vomiting Pantoprazole Sodium (Protonix Inj) 40 mg IVP DAILY [facility] Last Admin: 03/28/18 09:57 Dose: 40 mg Pneumococcal Polyvalent Vaccine (Pneumovax 23 Vaccine) 0.5 ml IM .ONCE ONE Stop: 03/30/18 10:01 Polyethylene Glycol (Miralax) 17 gm PO DAILY [facility] Last Admin: 03/28/18 09:58 Dose: 17 gm Physical Exam - Constitutional Appears: Non-toxic, No Acute Distress - Head Exam Head Exam: ATRAUMATIC, NORMAL INSPECTION, NORMOCEPHALIC - Eye Exam Eye Exam: EOMI, Normal appearance - ENT Exam ENT Exam: Mucous Membranes Moist, Normal Exam - Neck Exam Neck exam: Positive for: Full Rom, Normal Inspection - Respiratory Exam Respiratory Exam: Clear to Auscultation Bilateral, NORMAL BREATHING PATTERN. absent: Rales, Rhonchi, Wheezes, Respiratory Distress - Cardiovascular Exam Cardiovascular Exam: REGULAR RHYTHM, +S1, +S2 - GI/Abdominal Exam GI & Abdominal Exam: Normal Bowel Sounds, Soft. absent: Distended, Firm, Guarding, Rebound, Rigid, Tenderness - Extremities Exam Extremities exam: Positive for: normal inspection. Negative for: pedal edema - Neurological Exam Additional comments: deaf/mute, gestures to daughter - Psychiatric Exam Additional comments: deaf/mute - Skin Skin Exam: Dry, Intact, Normal Color, Warm Results - Vital Signs Recent Vital Signs: Last Vital Signs Temp 97.8 F 03/28/18 18:10 Pulse 73 03/28/18 18:10 Resp 20 03/28/18 18:10 BP 115/73 03/28/18 18:10 Pulse Ox 99 03/28/18 18:10 - Labs Result Diagrams: 03/28/18 07:38 03/28/18 07:38 Labs: Laboratory Results - last 24 hr 03/27/18 03/28/18 03/28/18 16:49 03:23 07:03 WBC RBC Hgb Hct MCV MCH MCHC RDW Plt Count MPV Neut % (Auto) Lymph % (Auto) [place] % (Auto) Eos % (Auto) Baso % (Auto) Neut # (Auto) Lymph # (Auto) [place] # (Auto) Eos # (Auto) Baso # (Auto) Sodium Potassium Chloride Carbon Dioxide Anion Gap BUN Creatinine Est GFR ( Amer) Est GFR (Non-Af Amer) POC Glucose (mg/dL) 116 H 98 Random Glucose Hemoglobin A1c 6.9 H Calcium Phosphorus Magnesium Total Bilirubin AST ALT Alkaline Phosphatase Total Protein Albumin Globulin Albumin/Globulin Ratio Lipase 03/28/18 03/28/18 03/28/18 07:38 07:38 11:02 WBC 6.9 RBC 4.40 Hgb 12.2 D Hct 36.1 MCV 82.2 MCH 27.8 MCHC 33.9 RDW 13.9 Plt Count 187 MPV 8.6 Neut % (Auto) 61.3 Lymph % (Auto) 26.8 [place] % (Auto) 8.7 Eos % (Auto) 2.4 Baso % (Auto) 0.8 Neut # (Auto) 4.2 Lymph # (Auto) 1.8 [place] # (Auto) 0.6 Eos # (Auto) 0.2 Baso # (Auto) 0.1 Sodium 141 Potassium 3.8 Chloride 107 Carbon Dioxide 25 Anion Gap 13 BUN 15 Creatinine 0.8 Est GFR ( Amer) > 60 Est GFR (Non-Af Amer) > 60 POC Glucose (mg/dL) 139 H Random Glucose 101 Hemoglobin A1c Calcium 8.5 L Phosphorus 4.0 Magnesium 1.6 Total Bilirubin 0.5 AST 33 ALT 30 Alkaline Phosphatase 62 Total Protein 5.8 L Albumin 3.2 L D Globulin 2.6 Albumin/Globulin Ratio 1.2 Lipase 3504 H 03/28/18 03/28/18 15:48 21:12 WBC RBC Hgb Hct MCV MCH MCHC RDW Plt Count MPV Neut % (Auto) Lymph % (Auto) [place] % (Auto) Eos % (Auto) Baso % (Auto) Neut # (Auto) Lymph # (Auto) [place] # (Auto) Eos # (Auto) Baso # (Auto) Sodium Potassium Chloride Carbon Dioxide Anion Gap BUN Creatinine Est GFR ( Amer) Est GFR (Non-Af Amer) POC Glucose (mg/dL) 95 110 Random Glucose Hemoglobin A1c Calcium Phosphorus Magnesium Total Bilirubin AST ALT Alkaline Phosphatase Total Protein Albumin Globulin Albumin/Globulin Ratio Lipase Assessment & Plan - Assessment and Plan (Free Text) Assessment: 82F w/pancreatitis Plan: Pain control PRN Anti-emetic PRN Further recs pending attending evaluation Will DW Dr. Hetal Mazariegos, PGY-2 - Date & Time Date: 03/28/18 Time: 22:16
[2018-03-29] MEDS: Lactated Ringer's 1,000 ML IV SCH (00:45)
[2018-03-29 06:25] LABS: BASO % 0.6 % (0.0-2.0); EOS # 0.3 K/uL (0.0-0.7); EOS % 5.8 % (0.0-4.0); HEMOGLOBIN 12.6 g/dL (11.0-16.0); LYMPH # 1.6 K/uL (1.0-4.3); LYMPH % 33.5 % (20.0-40.0); MEAN CELL VOLUME 81.9 fL (81.0-99.0); MEAN CORPUSCULAR HEMOGLOBIN 28.6 pg (27.0-31.0); MEAN CORPUSCULAR HGB CONC 34.9 g/dL (33.0-37.0); MEAN PLATELET VOLUME 8.6 fL (7.2-11.7); MONO # 0.5 K/uL (0.0-0.8); MONO % 9.8 % (0.0-10.0); NEUT # 2.4 K/uL (1.8-7.0); NEUT % 50.3 % (50.0-75.0); RBC 4.41 Mil/uL (3.80-5.20); RED CELL DISTRIBUTION WIDTH 13.9 % (11.5-14.5); WHITE BLOOD COUNT 4.8 K/uL (4.8-10.8)
[2018-03-29 06:44] LABS: ALB/GLOB RATIO 1.4 (1.0-2.1); ALBUMIN 3.7 g/dL (3.5-5.0); ALT/SGPT 25 U/L (9-52); AST/SGOT 26 U/L (14-36); BLOOD UREA NITROGEN 11 mg/dL (7-17); CALCIUM 9.3 mg/dl (8.6-10.4); GFR NON-AFRICAN AMERICAN > 60
[2018-03-29] MEDS: (Novolin R) Insulin Human Regular 100 units/ml vial SC SCH ×4 (08:03→22:07)
--- NOTE | 2018-03-29 10:12 | CP.PCM.PN ---
Subjective - Date & Time of Evaluation Date of Evaluation: 03/29/18 Time of Evaluation: 10:10 - Subjective Subjective: General Surgery: Dr Fong Pt S&E. ALEXANDRO. Has been tolerating diet without difficulty. Having regular BMs. Epigastric pain has resolved. Surgery consulted for evaluation of duodenal diverticulum. Objective - Vital Signs/Intake and Output Vital Signs (last 24 hours): Temp Pulse Resp BP Pulse Ox 98.1 F 71 20 146/72 97 03/29/18 05:30 03/29/18 05:30 03/29/18 05:30 03/29/18 05:30 03/29/18 05:30 Intake and Output: 03/29/18 03/29/18 06:59 18:59 Intake Total 1500 Balance 1500 - Medications Medications: Current Medications Dextrose (Dextrose 50% Inj) 0 ml IV STAT PRN; Protocol PRN Reason: Hypoglycemia Protocol Dextrose (Glutose 15) 0 gm PO ONCE PRN; Protocol PRN Reason: Hypoglycemia Protocol Enoxaparin Sodium (Lovenox) 40 mg SC DAILY [facility] Last Admin: 03/28/18 09:57 Dose: 40 mg Glucagon (Glucagen Diagnostic Kit) 0 mg IM STAT PRN; Protocol PRN Reason: Hypoglycemia Protocol Dextrose (Dextrose 5% In Water 1000 Ml) 1,000 mls @ 0 mls/hr IV .Q0M PRN; Protocol PRN Reason: Hypoglycemia Protocol Ceftriaxone Sodium 1 gm/ (Sodium Chloride) 100 mls @ 100 mls/hr IVPB DAILY [facility]; Protocol Last Admin: 03/28/18 09:56 Dose: 100 mls/hr Insulin Human Regular (Novolin R) 0 unit SC ACHS [facility]; Protocol Last Admin: 03/29/18 08:03 Dose: Not Given Morphine Sulfate (Morphine) 1 mg IVP Q4 PRN PRN Reason: Pain, severe (8-10) Last Admin: 03/28/18 00:00 Dose: 1 mg Ondansetron HCl (Zofran Inj) 4 mg IVP Q6 PRN PRN Reason: Nausea/Vomiting Pantoprazole Sodium (Protonix Inj) 40 mg IVP DAILY [facility] Last Admin: 03/28/18 09:57 Dose: 40 mg Pneumococcal Polyvalent Vaccine (Pneumovax 23 Vaccine) 0.5 ml IM .ONCE ONE Stop: 03/30/18 10:01 Polyethylene Glycol (Miralax) 17 gm PO DAILY [facility] Last Admin: 03/28/18 09:58 Dose: 17 gm - Labs Labs: 03/29/18 06:14 03/29/18 06:14 - Constitutional Appears: Non-toxic, No Acute Distress - ENT Exam ENT Exam: Mucous Membranes Moist - Respiratory Exam Respiratory Exam: absent: Accessory Muscle Use, Respiratory Distress - Cardiovascular Exam Cardiovascular Exam: REGULAR RHYTHM. absent: Tachycardia - GI/Abdominal Exam GI & Abdominal Exam: Soft. absent: Distended, Firm, Tenderness Assessment and Plan - Assessment and Plan (Free Text) Assessment: 82F with GIST and duodenal diverticulum Plan: pt has multiple issues which need to be addressed, including GIST and duodenal diverticulum per GI pt will need advanced endoscopist for further evaluation of GIST for duodenal diverticulum pt will likely need advanced HPB surgeon. Would recommend Dr Merrick Whitaker @ [facility] [phone] no surgical intervention planned on this admission d/w Dr Hetal Gramajo, PGY4
[2018-03-29] MEDS: POLYETHYLENE GLYCOL 3350 17 GM/Dose PACKET PO SCH (11:16)
[2018-03-29] MEDS: Enoxaparin 40 mg Syringe SC SCH (11:16)
--- NOTE | 2018-03-29 23:11 | CP.PCM.DIS ---
<Peterson Galo - Last Filed: 03/30/18 01:47> Provider - Provider Date of Admission: 03/27/18 15:04 Attending physician: Carmen Lara DO Time Spent in preparation of Discharge (in minutes): 120 Diagnosis - Discharge Diagnosis (1) Pancreatitis Status: Acute Hospital Course - Lab Results Lab Results: Micro Results 03/27/18 16:50 Blood-Venous Blood Culture - Preliminary NO GROWTH AFTER 48 HOURS 03/27/18 16:20 Blood-Venous Blood Culture - Preliminary NO GROWTH AFTER 48 HOURS 03/27/18 13:30 Urine Urine Culture - Final 10-50,000 CFU/ML. MULTIPLE SPECIES. PROBABLE CONTAMINATION. Most Recent Lab Values WBC 4.8 K/uL (4.8-10.8) 03/29/18 06:14 RBC 4.41 Mil/uL (3.80-5.20) 03/29/18 06:14 Hgb 12.6 g/dL (11.0-16.0) 03/29/18 06:14 Hct 36.1 % (34.0-47.0) 03/29/18 06:14 MCV 81.9 fL (81.0-99.0) 03/29/18 06:14 MCH 28.6 pg (27.0-31.0) 03/29/18 06:14 MCHC 34.9 g/dL (33.0-37.0) 03/29/18 06:14 RDW 13.9 % (11.5-14.5) 03/29/18 06:14 Plt Count 170 K/uL (130-400) 03/29/18 06:14 MPV 8.6 fL (7.2-11.7) 03/29/18 06:14 Neut % (Auto) 50.3 % (50.0-75.0) 03/29/18 06:14 Lymph % (Auto) 33.5 % (20.0-40.0) 03/29/18 06:14 [place] % (Auto) 9.8 % (0.0-10.0) 03/29/18 06:14 Eos % (Auto) 5.8 % (0.0-4.0) H 03/29/18 06:14 Baso % (Auto) 0.6 % (0.0-2.0) 03/29/18 06:14 Neut # (Auto) 2.4 K/uL (1.8-7.0) 03/29/18 06:14 Lymph # (Auto) 1.6 K/uL (1.0-4.3) 03/29/18 06:14 [place] # (Auto) 0.5 K/uL (0.0-0.8) 03/29/18 06:14 Eos # (Auto) 0.3 K/uL (0.0-0.7) 03/29/18 06:14 Baso # (Auto) 0.0 K/uL (0.0-0.2) 03/29/18 06:14 Sodium 144 mmol/L (132-148) 03/29/18 06:14 Potassium 4.0 mmol/L (3.6-5.2) 03/29/18 06:14 Chloride 106 mmol/L (98-107) 03/29/18 06:14 Carbon Dioxide 29 mmol/L (22-30) 03/29/18 06:14 Anion Gap 12 (10-20) 03/29/18 06:14 BUN 11 mg/dL (7-17) 03/29/18 06:14 Creatinine 0.7 mg/dL (0.7-1.2) 03/29/18 06:14 Est GFR ( Amer) > 60 03/29/18 06:14 Est GFR (Non-Af Amer) > 60 03/29/18 06:14 POC Glucose (mg/dL) 193 mg/dL (65-110) H 03/29/18 21:13 Random Glucose 107 mg/dL (65-105) H 03/29/18 06:14 Hemoglobin A1c 6.9 % (4.2-6.5) H 03/27/18 16:49 Calcium 9.3 mg/dl (8.6-10.4) 03/29/18 06:14 Phosphorus 3.7 mg/dL (2.5-4.5) 03/29/18 06:14 Magnesium 1.6 mg/dL (1.6-2.3) 03/29/18 06:14 Total Bilirubin 0.3 mg/dL (0.2-1.3) 03/29/18 06:14 AST 26 U/L (14-36) 03/29/18 06:14 ALT 25 U/L (9-52) 03/29/18 06:14 Alkaline Phosphatase 67 U/L (38-126) 03/29/18 06:14 Troponin I < 0.0120 ng/mL (0.00-0.120) 03/27/18 12:46 NT-Pro-B Natriuret Pep 96.8 pg/mL (0-900) 03/27/18 12:46 Total Protein 6.3 g/dL (6.3-8.3) 03/29/18 06:14 Albumin 3.7 g/dL (3.5-5.0) 03/29/18 06:14 Globulin 2.6 gm/dL (2.2-3.9) 03/29/18 06:14 Albumin/Globulin Ratio 1.4 (1.0-2.1) 03/29/18 06:14 Triglycerides 208 mg/dL (0-149) H 03/27/18 16:49 Cholesterol 252 mg/dL (0-199) H 03/27/18 16:49 LDL Cholesterol Direct 158 mg/dL (0-129) H 03/27/18 16:49 HDL Cholesterol 40 mg/dL (30-70) 03/27/18 16:49 Lipase 3504 U/L (23-300) H 03/28/18 07:38 Urine Color Yellow (YELLOW) 03/27/18 12:54 Urine Clarity [place] (Clear) 03/27/18 12:54 Urine pH 6.0 (5.0-8.0) 03/27/18 12:54 Ur Specific [place] 1.014 (1.003-1.030) 03/27/18 12:54 Urine Protein Negative mg/dL (NEGATIVE) 03/27/18 12:54 Urine Glucose (UA) Normal mg/dL (Normal) 03/27/18 12:54 Urine Ketones Negative mg/dL (NEGATIVE) 03/27/18 12:54 Urine Blood Negative (NEGATIVE) 03/27/18 12:54 Urine Nitrate Negative (NEGATIVE) 03/27/18 12:54 Urine Bilirubin Negative (NEGATIVE) 03/27/18 12:54 Urine Urobilinogen 2.0 mg/dL (0.2-1.0) H 03/27/18 12:54 Ur Leukocyte Esterase 3+ Geeta/uL (Negative) H 03/27/18 12:54 Urine WBC (Auto) 15 /hpf (0-5) H 03/27/18 12:54 Urine RBC (Auto) 2 /hpf (0-3) 03/27/18 12:54 Ur Squamous Epith Cells 6 /hpf (0-5) H 03/27/18 12:54 Urine Bacteria Rare (<OCC) 03/27/18 12:54 - Hospital Course Hospital Course: On admission This is a 82 year old female with PMHx Deaf (bilaterally) Hypertension, HLD, T2DM, Recurrent Pancreatitis, H. Pylori, Constipation, Gastritis who presents with abdominal pain. History retrieved from daughter, Bisi as patient is deaf. She has had this intermittent abdominal gnawing, burning pain for the past 6 months. The pain persisted while she was in [place] but it was intermittent and not as strong as this episode. Patient was seen in May 2017 for pancreatitis, she underwent extensive work up since then including Pancreas CT protocol and Upper EUS which was unremarkable, except positive for H. Pylori (09/2017). Patient never followed up with GI for the results as she traveled to [place] and just returned 2 weeks ago. As per daughter, patient reported nausea, some vomiting, sometimes associated with food (unclear what types provoke it more or less). Patient is constipated at baseline but reported being able to pass flatus and small bowel movement today. As per daughter, no fever, chills, chest pain, SOB, abdominal pain currently, n/v/, or urinary symptoms. On hospitalization Patient was admited for Acute pancreatitis. Lipase level - 8941. On Ct scan: CT abdomen and pelvis: 1. 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 2. Constipation. No evidence of bowel obstruction. Abdominal U/S - dilated common bile duct measuring up to 7 mm. Thickened gallbladder wall measuring up to 4.7 mm. Associated gallbladder wall edema. Increased echonegenicity of hepatic parenchymal cortex disease. Limited visualization of pancreas. On the ER patient was placed on NPO, IVF, Zofran and Morphine PRN. Lipase 03/28 trended down to 3504 from 8941, WBC 6.9 aand Vitals - Afebrile at 98.6. Blood cx - no growth after 48 hours. urine culture show multiple species, most likely due to contamination. 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 Surgery Dr Fong consulted, recommended no surgical intervention at this time and recommended to follow up with [facility] psychiatric specialist at [facility]. Patient was given dulcolax NV x1 for constipation, which allowed patient to have bowel movement. Patients home meds were initially held, but restarted once diet was advanced and tolerated. history of type 2 dm was managed with accuchecks. GI PPX:Protonix IVP; DVT ppx, SCDS, lovenox On discharge -Patient is to f/u with the [facility] clinic after discharge. -Please call the office to make an appointment -Referral to GI clinic given to be patient to get appointment at [facility] GI clinic. Please follow up with the GI clinic -Patient is to follow up with hepatobilliary surgeon Dr Merrick Whitaker at [facility]. Please call the following number for appointment: [phone] -Patient's daugther will be provided with CT scan CD/report to provide Hepatobilliary surgeon at time of appointment -Patient to start the following medication for treatment of gut bacteria -Amoxicillin 500mg per mouth 2 tablets in the morning and two tablets in the evening for 14 days. Please take a banana with the medications due to medication leaving a metallic taste - Clarithromycin 500 mg per mouth one tablet twice a day for 14 days. - Flagyl 500 mg per mouth one tablet twice a day for 14 days - Omeprazole 20 mg per mouth one tablet twice a day for 14 days Patient is to continue home medications - Lipitor 20 mg per mouth at nighttime - Norvasc 5 mg per mouth daily - Metformin 500mg per mouth one tablet twice a day - Lisinopril 10 mg per mouth one table daily Hold the following medication for now: - Hydrochlorothiazide 12.5 mg per mouth one tablet daily Patient to resume bland, low citrus diet. Please avoid caffeine If symptoms worsen or recur, please return to ER This is a short summary of Patient's hospital course. For more information, please refer to patient's EMR - Date & Time of H&P Date of H&P: 03/27/18 Time of H&P: 15:10 Discharge Exam - Head Exam Head Exam: ATRAUMATIC, NORMAL INSPECTION, NORMOCEPHALIC - Eye Exam Eye Exam: EOMI, Normal appearance - ENT Exam ENT Exam: Mucous Membranes Moist, Normal Exam Additional comments: Patient is deaf bilaterally, communication possible via daughter who uses sign language to communicate with patient - Neck Exam Neck exam: Full Rom, Normal Inspection - Respiratory Exam Respiratory Exam: Clear to PA & Lateral, NORMAL BREATHING PATTERN, UNREMARKABLE. absent: Accessory Muscle Use, Rales, Rhonchi, Wheezes, Respiratory Distress - Cardiovascular Exam Cardiovascular Exam: REGULAR RHYTHM, +S1, +S2 - GI/Abdominal Exam GI & Abdominal Exam: Normal Bowel Sounds, Unremarkable. absent: Distended, Guarding - Extremities Exam Extremities exam: full ROM, normal inspection - Back Exam Back exam: NORMAL INSPECTION - Neurological Exam Neurological exam: Alert, Oriented x3 - Psychiatric Exam Psychiatric exam: Normal Affect, Normal Mood - Skin Skin Exam: Dry, Intact, Normal Color, Warm Discharge Plan - Discharge Medications Prescriptions: RX: Amoxicillin 500 mg PO BID 14 Days #56 tablet RX: Clarithromycin [Biaxin Filmtab] 500 mg PO BID 14 Days #28 tab Metronidazole [Flagyl] 500 mg PO BID 14 Days #28 tab RX: Omeprazole 20 mg PO BID 14 Days #28 - Follow Up Plan Condition: FAIR Disposition: HOME/ ROUTINE Instructions: Pancreatitis (DC) Additional Instructions: -Patient is to f/u with the [facility] after discharge. -Please call the office to make an appointment -Referral to GI clinic given to be patient to get appointment at [facility] GI clinic. Please follow up with the GI clinic -Patient is to follow up with hepatobilliary surgeon Dr Merrick Whitaker at [facility]. Please call the following number for appointment: [phone] -Patient's daugther will be provided with CT scan CD/report to provide Hepatobilliary surgeon at time of appointment -Patient to start the following medication for treatment of gut bacteria -Amoxicillin 500mg per mouth 2 tablets in the morning and two tablets in the evening for 14 days. Please take a banana with the medications due to medication leaving a metallic taste - Clarithromycin 500 mg per mouth one tablet twice a day for 14 days. - Flagyl 500 mg per mouth one tablet twice a day for 14 days - Omeprazole 20 mg per mouth one tablet twice a day for 14 days Patient is to continue home medications - Lipitor 20 mg per mouth at nighttime - Norvasc 5 mg per mouth daily - Metformin 500mg per mouth one tablet twice a day - Lisinopril 10 mg per mouth one table daily Hold the following medication for now: - Hydrochlorothiazide 12.5 mg per mouth one tablet daily Patient to resume bland, low citrus diet. Please avoid caffeine If symptoms worsen or recur, please return to ER -Paciente tendra que seguir con la clnica del [facility] [place]. -Por favor llame a la oficina para hacer amie lisa -Referencia a la clnica de gastroenterologa tip para ser paciente y obtener amie lisa en la clnica GI de [facility]. Por favor zaire un seguimiento con la clnica GI -Patient es hacer un seguimiento con el cirujano hepatobiliar El Dr. Merrick Whitaker en [facility]. Llame al siguiente nmero para programar amie lisa: [phone] - A la hija del paciente se le proporcionar un CD / informe de tomografa computarizada para proporcionar al cirujano hepatobiliar el momento de la lisa. -Paciente para comenzar la siguiente medicacin para el tratamiento de bacterias intestinales -Amoxicilina 500 mg por boca 2 tabletas por la maana y dos tabletas por la noche keo 14 mcdonald. Por favor tome un pltano con los medicamentos debido a la medicacin dejando un sabor metlico - Claritromicina 500 mg por boca, amie tableta dos veces al da keo 14 mcdonald. - Flagyl 500 mg por boca, amie tableta dos veces al da keo 14 mcdonald - Omeprazol 20 mg por boca, amie tableta dos veces al da keo 14 mcdonald El paciente debe continuar con los medicamentos en el hogar - Lipitor 20 mg por boca por la noche - Norvasc 5 mg por boca al da - Metformina 500 mg por boca, amie tableta dos veces al da - Lisinopril 10 mg por boca amie cervantes diaria Mantenga el siguiente medicamento por ahora: - Hidroclorotiazida 12.5 mg por boca, amie tableta al da Paciente para reanudar la dieta suave, baja en ctricos. Por favor, ajith la cafena Si los sntomas empeoran o reaparecen, regrese a ER Referrals: [facility] [Outside] <Carmen Lara V - Last Filed: 03/30/18 15:13> Provider - Provider Date of Admission: 03/27/18 15:04 Attending physician: Carmen Lara DO Hospital Course - Lab Results Lab Results: Micro Results 03/27/18 16:50 Blood-Venous Blood Culture - Preliminary NO GROWTH AFTER 48 HOURS 03/27/18 16:20 Blood-Venous Blood Culture - Preliminary NO GROWTH AFTER 48 HOURS 03/27/18 13:30 Urine Urine Culture - Final 10-50,000 CFU/ML. MULTIPLE SPECIES. PROBABLE CONTAMINATION. Most Recent Lab Values WBC 4.8 K/uL (4.8-10.8) 03/29/18 06:14 RBC 4.41 Mil/uL (3.80-5.20) 03/29/18 06:14 Hgb 12.6 g/dL (11.0-16.0) 03/29/18 06:14 Hct 36.1 % (34.0-47.0) 03/29/18 06:14 MCV 81.9 fL (81.0-99.0) 03/29/18 06:14 MCH 28.6 pg (27.0-31.0) 03/29/18 06:14 MCHC 34.9 g/dL (33.0-37.0) 03/29/18 06:14 RDW 13.9 % (11.5-14.5) 03/29/18 06:14 Plt Count 170 K/uL (130-400) 03/29/18 06:14 MPV 8.6 fL (7.2-11.7) 03/29/18 06:14 Neut % (Auto) 50.3 % (50.0-75.0) 03/29/18 06:14 Lymph % (Auto) 33.5 % (20.0-40.0) 03/29/18 06:14 [place] % (Auto) 9.8 % (0.0-10.0) 03/29/18 06:14 Eos % (Auto) 5.8 % (0.0-4.0) H 03/29/18 06:14 Baso % (Auto) 0.6 % (0.0-2.0) 03/29/18 06:14 Neut # (Auto) 2.4 K/uL (1.8-7.0) 03/29/18 06:14 Lymph # (Auto) 1.6 K/uL (1.0-4.3) 03/29/18 06:14 [place] # (Auto) 0.5 K/uL (0.0-0.8) 03/29/18 06:14 Eos # (Auto) 0.3 K/uL (0.0-0.7) 03/29/18 06:14 Baso # (Auto) 0.0 K/uL (0.0-0.2) 03/29/18 06:14 Sodium 144 mmol/L (132-148) 03/29/18 06:14 Potassium 4.0 mmol/L (3.6-5.2) 03/29/18 06:14 Chloride 106 mmol/L (98-107) 03/29/18 06:14 Carbon Dioxide 29 mmol/L (22-30) 03/29/18 06:14 Anion Gap 12 (10-20) 03/29/18 06:14 BUN 11 mg/dL (7-17) 03/29/18 06:14 Creatinine 0.7 mg/dL (0.7-1.2) 03/29/18 06:14 Est GFR ( Amer) > 60 03/29/18 06:14 Est GFR (Non-Af Amer) > 60 03/29/18 06:14 POC Glucose (mg/dL) 150 mg/dL (65-110) H 03/30/18 11:18 Random Glucose 107 mg/dL (65-105) H 03/29/18 06:14 Hemoglobin A1c 6.9 % (4.2-6.5) H 03/27/18 16:49 Calcium 9.3 mg/dl (8.6-10.4) 03/29/18 06:14 Phosphorus 3.7 mg/dL (2.5-4.5) 03/29/18 06:14 Magnesium 1.6 mg/dL (1.6-2.3) 03/29/18 06:14 Total Bilirubin 0.3 mg/dL (0.2-1.3) 03/29/18 06:14 AST 26 U/L (14-36) 03/29/18 06:14 ALT 25 U/L (9-52) 03/29/18 06:14 Alkaline Phosphatase 67 U/L (38-126) 03/29/18 06:14 Troponin I < 0.0120 ng/mL (0.00-0.120) 03/27/18 12:46 NT-Pro-B Natriuret Pep 96.8 pg/mL (0-900) 03/27/18 12:46 Total Protein 6.3 g/dL (6.3-8.3) 03/29/18 06:14 Albumin 3.7 g/dL (3.5-5.0) 03/29/18 06:14 Globulin 2.6 gm/dL (2.2-3.9) 03/29/18 06:14 Albumin/Globulin Ratio 1.4 (1.0-2.1) 03/29/18 06:14 Triglycerides 208 mg/dL (0-149) H 03/27/18 16:49 Cholesterol 252 mg/dL (0-199) H 03/27/18 16:49 LDL Cholesterol Direct 158 mg/dL (0-129) H 03/27/18 16:49 HDL Cholesterol 40 mg/dL (30-70) 03/27/18 16:49 Lipase 3504 U/L (23-300) H 03/28/18 07:38 Urine Color Yellow (YELLOW) 03/27/18 12:54 Urine Clarity [place] (Clear) 03/27/18 12:54 Urine pH 6.0 (5.0-8.0) 03/27/18 12:54 Ur Specific [place] 1.014 (1.003-1.030) 03/27/18 12:54 Urine Protein Negative mg/dL (NEGATIVE) 03/27/18 12:54 Urine Glucose (UA) Normal mg/dL (Normal) 03/27/18 12:54 Urine Ketones Negative mg/dL (NEGATIVE) 03/27/18 12:54 Urine Blood Negative (NEGATIVE) 03/27/18 12:54 Urine Nitrate Negative (NEGATIVE) 03/27/18 12:54 Urine Bilirubin Negative (NEGATIVE) 03/27/18 12:54 Urine Urobilinogen 2.0 mg/dL (0.2-1.0) H 03/27/18 12:54 Ur Leukocyte Esterase 3+ Geeta/uL (Negative) H 03/27/18 12:54 Urine WBC (Auto) 15 /hpf (0-5) H 03/27/18 12:54 Urine RBC (Auto) 2 /hpf (0-3) 03/27/18 12:54 Ur Squamous Epith Cells 6 /hpf (0-5) H 03/27/18 12:54 Urine Bacteria Rare (<OCC) 03/27/18 12:54 Attending/Attestation - Attestation I have personally seen and examined this patient.: Yes I have fully participated in the care of the patient.: Yes I have reviewed all pertinent clinical information, including history, physical exam and plan: Yes Notes (Text): This is late computer entry for 03/29/2018. Patient seen, examined, case discussed with medical assistant per diem. Patient denies nausea, denies vomiting, denies abdominal pain, tolerating diet. She medically stable for discharge. Discharge instructions discussed with the daughter at bedside given limitation w ith since patient is patient bilaterally deaf in both ears. Patient recommended follow-up at [facility] with hepatobiliary surgeon, since this service is not available at this hospital. Number and phone number of surgeon name provided to daughter at bedside. Patient's daughter will be provided with CT scan CD/report to provide Hepatobilliary surgeon at time of appointment Patient recommended to follow-up with GI as outpatient given history of Gist tumor for further monitoring. Currently there is no GI clinic at the [facility] at this [facility]. I've spoken with the clinical asst Dr. Nehal Cuevas, who is currently recommending patients to [facility] GI [facility] clinic for follow-up at this time. Referral to [facility] GI provided to patient. Medications upon discharge: For treatment of H. pylori: 1. Augmentin 500 mg 2 tabs morning to test the evening 56 pills 0 refills 2. Clarithromycin 500 mg 1 tab the morning and 1 tablet in the evening 28 pills 0 refills advised to eat with banana given metallic taste 3. Flagyl 501 tab the morning 1 tab leaning 28 pills 0 refills advised not to eat with alcohol due to unwanted reaction 4. Omeprazole 20 mg once tablet 21 tab the evening for 14 days Patient to continue following home medications: - Lipitor 20 mg per mouth at nighttime - Norvasc 5 mg per mouth daily - Metformin 500mg per mouth one tablet twice a day - Lisinopril 10 mg per mouth one table daily Hold the following medication for now: - Hydrochlorothiazide 12.5 mg per mouth one tablet daily Patient to resume bland, low citrus diet. Please avoid caffeine This is a summary of patient's hospitalization. Please refer to EMR for full detail record Discharge diagnoses: 1) Abdominal pain Acute chemical Pancreatitis Prior history of positive H. pylori * General surgery, Dr. Fong on case-->help appreciated. * GI consulted, Dr. Matias on-call help appreciated * Lipase: 8941, repeat improved Imaging: * CT abdomen and pelvis: 1. 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 2. Constipation. No evidence of bowel obstruction. * General surgery has evaluated. No acute intervention. * Referred to hepatobilary surgeon at [facility] with phone number which was provided to daughter upon discharge. * Abdominal ultrasound: Dilated common bile duct measuring 7 mm. Thickened gallbladder wall measuring up to 4.7 mm associated gallbladder wall edema. Increased echogenicity of the hepatic parenchymal cortex suggestive for fatty infiltration versus hepatic parenchymal disease. Limited visualization of pancreas. * Gen. surgery evaluation recommended by GI. Given both gallbladder findings on ultrasound is also CT scan. Previous Workup: - Upper EUS 09/03/17: Prior US from September 03: Round intramural subepithelial lesion noted in the cardia of the stomach but 1 cm distal to GE junction lesion appears to originate from the muscularis propria fine-needle biopsy was performed. Pathology noted for H. pylori in both spinal muscle stained as well patient did not follow-up (results). - Biopsy from EUS showed + H. pylori--> prescriptions for treatment provided upon discharge - Pancreatic CT Protocol 09/2017: No peripancreatic inflammatory changes or fluid collections evident. Pancreatic atrophy. Recommend correlation with amylase and lipase. 2) Urinary Tract Infection Assessment and plan UA - + LE, f/u urine culture pending Rocephin 1 gram daily started 03/27/18 Culture to contaminated. In medications for H. pylori. Augmentin should cover. 3) Constipation resolved Assessment and plan Dulcolax NV x1 MiraLAX daily 4) Hypertension controlled Assessment and plan HELD home medications due to NPO status: Norvasc 5mg daily, Lisinopril 10mg daily, HCTZ 12.5mg daily Resumed Norvasc, Lisnopril, and held HCTZ. 5) Type 2 DM Assessment and plan * A1c 6.9. * Discharge will need metformin 500 mg by mouth twice a day and Lisinopril 6) Hypercholesterolemia, Hyperlipidemia Assessment and plan Restarted home meds Lipitor -- (NF), Crestor (will hold since strict NPO) T choles: 252 LDL: HDL: 40 7) Hx Gastritis Assessment and plan Upper EUS 09/03/17: Prior US from September 03: Round intramural subepithelial lesion noted in the cardia of the stomach but 1 cm distal to GE junction lesion appears to originate from the muscularis propria fine-needle biopsy was performed. Pathology noted for H. pylori in both spinal muscle stained as well patient did not follow-up (results). Provided referral to [facility] for monitoring of GIST tumor to their GI clinic, since there is no [facility] GI clinic at this time. 8) Prophylactic Measures GI PPX:Protonix; DVT ppx, SCDS Patient is deaf. Patient communicates through sign language. She does not read lips.
[2018-03-30] MEDS: (Novolin R) Insulin Human Regular 100 units/ml vial SC SCH ×2 (07:24→11:33)
[2018-03-30 08:06] VITALS: BP 144/76; PULSE 65; TEMP 98.8; O2SAT 96
[2018-03-30] MEDS: Enoxaparin 40 mg Syringe SC SCH (09:51)
[2018-03-30] MEDS: POLYETHYLENE GLYCOL 3350 17 GM/Dose PACKET PO SCH (09:51)
[2018-03-30] MEDS ORDERED: Pneumococcal 23-Valent Vaccine IM ONE (10:00)
== END 2018-03-30 13:50 | disposition home or self-care (01) | DRG 204 ==
LOC: C.ER 12:09 → C.9E 15:04 → C.3T 17:24
PROVIDERS: ADMIT Hospitalist; ATTEND Hospitalist
DX: K85.80 Other acute pancreatitis without necrosis or infection (principal); N39.0 Urinary tract infection, site not specified; K57.10 Diverticulosis of small intestine without perforation or abscess without bleeding; C49.A2 Gastrointestinal stromal tumor of stomach; E11.9 Type 2 diabetes mellitus without complications; I10 Essential (primary) hypertension; B96.81 Helicobacter pylori [H. pylori] as the cause of diseases classified elsewhere; K59.00 Constipation, unspecified; K76.0 Fatty (change of) liver, not elsewhere classified; K83.8 Other specified diseases of biliary tract; K86.1 Other chronic pancreatitis; E78.5 Hyperlipidemia, unspecified; E78.00 Pure hypercholesterolemia, unspecified; H91.3 Deaf nonspeaking, not elsewhere classified; Z79.84 Long term (current) use of oral hypoglycemic drugs; Z79.899 Other long term (current) drug therapy